=== PATIENT | female | born 2000 | race Caucasian/White ===

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

== ENCOUNTER 2021-02-14 04:13 | Inpatient (IN) ==
[2021-02-14] MEDS ORDERED: OXYTOCIN 30 UNITS/500 ML BAG IV PRN ×2 (05:21→09:18)
[2021-02-14] MEDS ORDERED: PENICILLIN G POTASSIUM 6 MU in DEXTROSE 5% 250 ML IV STA (05:21)
[2021-02-14] MEDS: LACTATED RINGER'S 1,000 ML IV PRN ×2 (05:40→15:56)
[2021-02-14 05:48] LABS: Hematocrit (blood only) 26.6 % (37-47); Mean Corpuscular Hemoglobin 22.3 pg (25-34); Mean Corpuscular Volume 74.1 fL (80-100); Mean Platelet Volume 10.4 fL (7.4-10.4); Platelet Count 207 K/uL (130-400); RDW Coefficient of Variation 16.2 % (11.5-14.5); RDW Standard Deviation 44.4 fL (36.4-46.3); Red Blood Count 3.59 M/uL (4.2-5.4); White Blood Count 11.33 K/uL (4.8-10.8)
--- NOTE | 2021-02-14 06:03 | History & Physical Report ---
Date of Service February 14, 2021 Assessment & Plan (1) Depression: Plan: Admit in labor epidural (2) Anxiety: (3) : Admission and Anticipated Discharge Date Admission Date: February 14, 2021 History of Present Illness Chief Complaint: term in labor Primary Care Provider: LÓPEZ PCP 20 F P1001 with no care present in active labor. Had ultrasound in [place] to establish EDC but no regular care established. 3 years ago with [facility] but no follow up since that time. Allergies Allergy/AdvReac Type Severity Reaction Status Date / Time No Known Allergies Allergy Mild Unverified 04/23/19 10:41 Home Medications Medication Instructions Recorded Confirmed Type methadone 10 mg/5 mL oral solution 55 mg PO DAILY 02/14/21 02/14/21 History vit no.95-ferrous 1 tab PO DAILY 02/14/21 02/14/21 History fumarate 28 mg-folic acid 800 mcg tablet () Patient History Medical History Nausea and vomiting during Normal vaginal delivery Doing well. Ambulate and diet progression as tolerated. complicated by maternal drug use, delivered, curr hospitaliz Surgical History History of tonsillectomy Family History Mother Cervical cancer Social History Smoking Status: Never smoker Second Hand Exposure: Yes; Hx Alcohol Use: No Hx Substance Use: Yes Last Used Substance: Unknown Last Used Substance Other:: Patient states she used medical marijuana a couple weeks ago Preferred Language: Cymro Communication Ability: Effective Medical Technologist Prn Required: No Beliefs That Will Affect Care: None marital status: Single Current Living Situation: Parent and Significant Other Other Information That Helps Us Care for You: No Feels Safe at Home: Yes Safety Concerns: Feels Safe At This Time Assistive Devices: None 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 neg Physical Exam Constitutional: WD/WN, vitals as above comfortable Eyes: PERRL, conjunctivae normal, anicteric sclerae Respiratory: normal respiratory effort, lungs clear to auscultation Cardiovascular: RRR, no murmur, no edema Neurologic: patellar DTR's 2+ bilat, sensation intact Psychiatric: A+Ox3, euthymic affect Genitourinary: OB Exam Abdomen: + fundal height and + vertex Manual OB Exam: + cervical dilation 7 cm, + cervical effacement 90% and + station 0 OB Exam Monitor Tracing: + external FHT monitor used, + external uterine monitor used, + category I and + normal FHT variability [facility] Vital Signs (Past 12 Hours) Vital Signs Temp Pulse Resp BP 02/14/21 05:04 77 154/87 H 02/14/21 04:53 69 183/77 H 02/14/21 04:44 94 H 158/91 H 02/14/21 04:34 36.5 C 84 18 175/94 H 02/14/21 04:31 84 175/94 H Monitoring External Monitor Cat 1
[2021-02-14 06:04] LABS: Mean Corpuscular Hgb Conc 30.1 g/dL (32-36)
[2021-02-14] MEDS ORDERED: ePHEDrine sulfate 50 MG/ML AMP ONE (06:22)
[2021-02-14] MEDS ORDERED: BUPIVACAINE 0.25% 30 ML VIAL ONE (06:22)
[2021-02-14] MEDS ORDERED: SODIUM CHLORIDE 0.9% INJ 10 ML VIAL ONE (06:22)
[2021-02-14] MEDS ORDERED: fentaNYL citrate 100 MCG/2 ML VIAL ONE (06:23)
[2021-02-14] MEDS ORDERED: fentaNYL 2MCG/ML ROPIVACAINE 1.25MG/ML 100 ML BAG EPI ONE (06:23)
--- NOTE | 2021-02-14 07:03 | Anesthesiology Consultation ---
Date of Service February 14, 2021 Assessment & Plan (1) Encounter for pre-operative examination: Chart Review Chart Review: Acceptable Risk for Labor Epidural History Height/Weight Height: 5 ft 3 in Weight: 77.111 kg Allergies Allergy/AdvReac Type Severity Reaction Status Date / Time No Known Allergies Allergy Mild Unverified 04/23/19 10:41 Medications Home Medications Medication Instructions Recorded Confirmed Last Taken methadone 10 mg/5 mL oral solution 55 mg PO DAILY 02/14/21 02/14/21 02/13/21 vit no.95-ferrous 1 tab PO DAILY 02/14/21 02/14/21 Unknown fumarate 28 mg-folic acid 800 mcg tablet () Active Medications Generic Name Dose Route Start Last Admin Trade Name Freq PRN Reason Stop Dose Admin Lactated Ringer's 1,000 mls @ 125 mls/hr 02/14/21 05:21 02/14/21 06:14 Lr IV 02/16/21 05:20 125 mls/hr .Q8H PRN Infusion L&D Protocol Protocol Past Medical History Medical History Nausea and vomiting during Normal vaginal delivery Doing well. Ambulate and diet progression as tolerated. complicated by maternal drug use, delivered, curr hospitaliz Past Family History Family History Mother Cervical cancer Past Surgical History Surgical History History of tonsillectomy Social History Smoking Status: Never smoker Hx Alcohol Use: No Hx Substance Use: Yes substance use type: marijuana and methamphetamine Last Used Substance: Unknown Last Used Substance Other:: Patient states she used medical marijuana a couple weeks ago Physical Exam Vital Signs Last Vital Signs Temp 36.5 C 02/14/21 04:34 Pulse 85 02/14/21 06:54 Resp 18 02/14/21 04:34 BP 154/87 H 02/14/21 05:04 Pulse Ox 100 02/14/21 06:54 Testing Laboratory Results 02/14/21 05:35
[2021-02-14] MEDS ORDERED: NALOXONE HCL 0.4 MG/1 ML VIAL/CARP IV PRN (07:31)
[2021-02-14] MEDS ORDERED: ePHEDrine sulfate 50 MG/ML AMP IV PRN (07:31)
[2021-02-14] MEDS ORDERED: NALOXONE HCL 1 MG in SODIUM CHLORIDE 0.9% 1000ML 1,000 ML IV PRN (07:31)
[2021-02-14] MEDS ORDERED: fentaNYL 2MCG/ML ROPIVACAINE 1.25MG/ML 100 ML BAG EPI PRN (07:31)
[2021-02-14] MEDS ORDERED: ONDANSETRON INJ 2 MG/ML 2 ML VIAL IV PRN (07:31)
[2021-02-14] MEDS ORDERED: SODIUM CHLORIDE 0.9% 250 ML IV PRN (07:42)
--- NOTE | 2021-02-14 07:58 | Obstetrical Progress Note ---
Date of Service February 14, 2021 Assessment & Plan Admission and Anticipated Discharge Date Admission Date: February 14, 2021 Subjective Patient is seen Admitted by Dr Landry this morning and recevied epidural for pain, comfortable now No care GBS unknown, received 1st dose of epidural Denies problems during this Denies medical problems/ surgeries Denies h/o STD's labs, Urine tox screen pending FHR reassuring Offered her pelvic exam but stated she is tired and wanted to sleep. Hb 8, T&C ordered for 2 units Continue to monitor Results & Data ([facility]) Vital Signs (Past 12 Hours) Vital Signs Temp Pulse Resp BP Pulse Ox 02/14/21 07:49 68 100 02/14/21 07:44 69 100 02/14/21 07:41 80 131/73 02/14/21 07:39 71 128/78 100 02/14/21 07:37 80 132/79 02/14/21 07:35 93 H 133/82 02/14/21 07:34 84 100 02/14/21 07:33 78 124/74 02/14/21 07:31 73 131/82 02/14/21 07:29 76 125/78 100 02/14/21 07:27 73 131/83 02/14/21 07:25 67 136/89 02/14/21 07:24 69 100 02/14/21 07:23 69 131/82 02/14/21 07:19 71 100 02/14/21 07:17 67 173/104 H 02/14/21 07:14 100 H 100 02/14/21 07:11 155/104 H 02/14/21 07:10 75 162/107 H 02/14/21 07:09 68 100 02/14/21 07:04 80 100 02/14/21 07:01 59 L 134/73 02/14/21 06:54 85 100 02/14/21 06:49 85 100 02/14/21 06:44 64 100 02/14/21 06:39 79 100 02/14/21 06:34 66 100 02/14/21 06:29 72 100 02/14/21 05:04 77 154/87 H 02/14/21 04:53 69 183/77 H 02/14/21 04:44 94 H 158/91 H 02/14/21 04:34 36.5 C 84 18 175/94 H 02/14/21 04:31 36.5 C 84 18 175/94 H
[2021-02-14] MEDS ORDERED: METHYLERGONOVINE MALEATE 0.2 MG/ML AMP ONE (08:00)
[2021-02-14] MEDS ORDERED: miSOPROStoL 200 MCG TAB ONE (08:04)
[2021-02-14] MEDS ORDERED: PENICILLIN G POTASSIUM 3 MU in DEXTROSE 5% 100 ML IV PRN (08:21)
[2021-02-14] MEDS ORDERED: AMMONIA, AROMATIC INHAL 1 EA AMP INH ONE (08:42)
[2021-02-14 08:43] LABS: Amphetamines+Metham, Urine Pos (Neg); Barbiturates, Urine Neg (Neg); Benzodiazepine, Urine Neg (Neg); Cocaine, Urine Neg (Neg); MDMA (Ecstacy), Urine Pos (Neg); Methadone, Urine Pos (Neg); Opiate, Urine Neg (Neg); Phencyclidine, Urine Neg (Neg)
[2021-02-14] MEDS: MAGNESIUM SULFATE / WTR 40 GM/1,000 ML BAG IV SCH ×2 (08:45→23:42)
[2021-02-14] MEDS: MAGNESIUM SULFATE 40GM / WTR 1,000 ML BAG IV ONE ×2 (08:45→14:27)
[2021-02-14 09:07] LABS: Hematocrit (blood only) 22.7 % (37-47); Hemoglobin 6.7 g/dL (12.0-16.0)
[2021-02-14 09:16] LABS: Hematocrit (blood only) 21.3 % (37-47); Hemoglobin 6.3 g/dL (12.0-16.0); Mean Corpuscular Hemoglobin 21.8 pg (25-34); Mean Corpuscular Hgb Conc 29.6 g/dL (32-36); Mean Corpuscular Volume 73.7 fL (80-100); Mean Platelet Volume 10.5 fL (7.4-10.4); Platelet Count 292 K/uL (130-400); RDW Coefficient of Variation 16.3 % (11.5-14.5); RDW Standard Deviation 44.1 fL (36.4-46.3); Red Blood Count 2.89 M/uL (4.2-5.4); White Blood Count 12.62 K/uL (4.8-10.8)
[2021-02-14] MEDS ORDERED: BENZOCAINE 20% AER SPR 82.5 GM CAN EXT PRN (09:18)
[2021-02-14] MEDS ORDERED: bisacodyL 10 MG SUPP PR PRN (09:18)
[2021-02-14] MEDS ORDERED: HYDROCORTISONE ACETATE 25 MG SUPP PR PRN (09:18)
[2021-02-14] MEDS ORDERED: MEASLES, MUMPS & RUBELLA VIRUS VIAL SQ ONE (09:18)
[2021-02-14] MEDS ORDERED: SUPERCREAM 0.870% 15 GM JAR EXT PRN (09:18)
[2021-02-14] MEDS ORDERED: DIPHTHERIA/TETANUS/PERTUSSIS 0.5 ML SYR/VIAL IM ONE (09:18)
[2021-02-14] MEDS ORDERED: miSOPROStoL 200 MCG TAB PR ONE (09:18)
[2021-02-14 09:20] LABS: Protein Creatinine Ratio Urine 0.2 (0-0.2); Total Protein Urine Random 43.7 mg/dl (0-11.9)
[2021-02-14] MEDS ORDERED: MAG SULFATE 6GM BOLUS FROM BAG IV ONE (09:22)
[2021-02-14 09:26] LABS: Rubella IgG Ab Immune (Immune)
[2021-02-14 09:27] LABS: Hepatitis B Surf Ag Rflx Conf Neg (Neg)
[2021-02-14] MEDS ORDERED: METHADONE HCL 5 MG TAB PO SCH (09:30)
[2021-02-14 09:32] LABS: Basophils # (auto) 0.01 K/uL (0-0.2); Basophils % (auto) 0.1 %; Eosinophils # (auto) 0.01 K/uL (0-0.5); Eosinophils % (auto) 0.1 %; Hypochromasia Present; Immature Granulocytes # (auto) 0.05 K/uL (0.00-0.02); Immature Granulocytes % (auto) 0.4 %; Lymphocytes # (auto) 1.47 K/uL (1.2-3.4); Lymphocytes % (auto) 11.6 %; Microcytosis Present; Monocytes # (auto) 0.37 K/uL (0.11-0.59); Monocytes % (auto) 2.9 %; Neutrophils # (auto) 10.71 K/uL (1.4-6.5); Neutrophils % (auto) 84.9 %
[2021-02-14 09:38] LABS: Albumin Level 2.1 gm/dl (3.4-5.0); BUN Creatinine Ratio 9.4 (10-20); Calcium 8.3 mg/dl (8.5-10.1); Creatinine Clr Calc Pharmacy 118.2 ml/min; Est GFR (African American) 134.2 ml/min; Est GFR (Non-African American) 115.8 ml/min; Potassium 3.6 mmol/L (3.5-5.1)
[2021-02-14 09:41] LABS: Albumin Globulin Ratio 0.7 (0.9-2); Bilirubin,Total 0.3 mg/dl (0.2-1); Globulin 3.2 gm/dl (2.5-4.0); Total Protein 5.3 gm/dl (6.4-8.2); Uric Acid 4.1 mg/dl (2.6-7.2)
--- NOTE | 2021-02-14 09:41 | Delivery Summary ---
Vaginal Delivery Summary Date of Service February 14, 2021 Vaginal Delivery Summary Patient was found to be fully dilated and desire to push. She pushed through 3 contractions and delivered the head without difficulty. The shoulders were delivered with minimal traction and baby was handed off to the mother that her mouth and nose were suctioned and cord was clamped x2 and cut at 1 minute delay. The baby was vigorously crying and moving at that point. The vagina and perineum were checked for lacerations. There was only small first-degree right labial laceration and rest of the vagina and perineum were intact. This was repaired with 3-0 Vicryl on SH needle and excellent hemostasis achieved. Then the patient started to have episodes of seizure like activity with brief change in consciousness and contracture of extremities. Then in a minute or so she gained her consciousness and responded to questions. She appeared to be tired as postictal. A second IV was started and nasal oxygen was given and magnesium bolus was started. Her vital signs were stable with normal blood pressure, Normal pulse and pulse ox. Patient was responsive but appeared to be pale and tired. Her preop hemoglobin was 8 and stat H&H came back with hemoglobin of 6.7. Blood was called to send the type and crossed packed red blood cells. Placenta was found to be in the vagina and delivered spontaneously as intact and complete. Uterus was explored and found to be empty, cleared of all clots and debris. Fundus was firm and EBL was 200 mL. She was given 800 mcg of Cytotec rectally. Bleeding was minimal and fundus was firm. Then we received urine drug screening results, positive for methadone, ecstasy, marijuana. The hospitalist and neurology were consulted. The baby was a viable male Apgars 8/9 and weight is pending, he was taking by pediatric team to nursery. At the end of the procedure the patient was stable and sponge needle instrument count was correct x2.
[2021-02-14 09:50] LABS: Fibrinogen 335 mg/dl (184-400); INR 0.9 (0.9-1.1); Partial Thromboplastin Ratio 0.8; Partial Thromboplastin Time 20.5 Seconds (21.0-31.0); Prothrombin Time 9.4 Seconds (9.0-12.0)
[2021-02-14 09:55] LABS: Hepatitis C IgG 13Yrs+Old_Rflx Neg (Neg)
[2021-02-14] MEDS ORDERED: PATIENT'S OWN CONTROLLED MED 3 SCH (10:15)
--- NOTE | 2021-02-14 10:27 | Obstetrical Progress Note ---
Date of Service February 14, 2021 Assessment & Plan Admission and Anticipated Discharge Date Admission Date: February 14, 2021 Subjective Patient is related. She feels well but cold and is asking for warm blankets. First unit of packed red blood cell is being transfused. Vital signs stable afebrile. Bleeding is minimal. Her blood pressures have been normal since delivery but they were found to be elevated when she was admitted. This was most likely an eclamptic seizure. Plan to Continue with IV magnesium for seizure prophylaxis and monitor closely. Lab Results 02/14/21 02/14/21 02/14/21 Range/Units 05:27 05:35 05:35 WBC 11.33 H (4.8-10.8) K/uL RBC 3.59 L (4.2-5.4) M/uL Hgb 8.0 L (12.0-16.0) g/dL Hct 26.6 L (37-47) % MCV 74.1 L (80-100) fL MCH 22.3 L (25-34) pg MCHC 30.1 L (32-36) g/dL RDW Std Deviation 44.4 (36.4-46.3) fL RDW Coeff of Davida 16.2 H (11.5-14.5) % Plt Count 207 (130-400) K/uL MPV 10.4 (7.4-10.4) fL Immature Gran % (Auto) % Neut % (Auto) % Lymph % (Auto) % [place] % (Auto) % Eos % (Auto) % Baso % (Auto) % Neut # (Auto) (1.4-6.5) K/uL Lymph # (Auto) (1.2-3.4) K/uL [place] # (Auto) (0.11-0.59) K/uL Eos # (Auto) (0-0.5) K/uL Baso # (Auto) (0-0.2) K/uL Immature Gran # (Auto) (0.00-0.02) K/uL Hypochromasia Microcytosis PT (9.0-12.0) Seconds INR (0.9-1.1) APTT (21.0-31.0) Seconds PTT Ratio Fibrinogen (184-400) mg/dl Sodium (136-145) mmol/L Potassium (3.5-5.1) mmol/L Chloride (98-107) mmol/L Carbon Dioxide (21-32) mmol/L Anion Gap (3-11) BUN (7-18) mg/dl Creatinine (0.6-1.2) mg/dl Est Cr Clr Drug Dosing ml/min Est GFR ( Amer) ml/min Est GFR (Non-Af Amer) ml/min BUN/Creatinine Ratio (10-20) Glucose (70-99) mg/dl Uric Acid (2.6-7.2) mg/dl Calcium (8.5-10.1) mg/dl Total Bilirubin (0.2-1) mg/dl AST (15-37) U/L ALT (12-78) Alkaline Phosphatase (45-117) U/L Lactate Dehydrogenase (84-246) U/L Total Protein (6.4-8.2) gm/dl Albumin (3.4-5.0) gm/dl Globulin (2.5-4.0) gm/dl Albumin/Globulin Ratio (0.9-2) Ur Random Creatinine mg/dl U Random Total Protein (0-11.9) mg/dl Protein/Creatinin Ratio (0-0.2) Urine Opiates Screen (Neg) Ur Methadone, Qual (Neg) Urine Barbiturates (Neg) Ur Phencyclidine (PCP) (Neg) U Amphetamin/Meth Scrn (Neg) MDMA (Ecstasy) Screen (Neg) U Benzodiazepines Scrn (Neg) Ur Cocaine Metabolite (Neg) U Marijuana (THC) Screen (Neg) Hep Bs Antigen (Neg) Hepatitis C Antibody (Neg) HIV 1&2 Ab/P24 Ag 4thGn (Neg) Rubella IgG Antibody (Immune) SARS-CoV-2, RNA, NAAT NEGATIVE (NEGATIVE) Blood Type O Positive Antibody Screen NEGATIVE Crossmatch See Detail 02/14/21 02/14/21 02/14/21 Range/Units 05:35 05:35 07:40 WBC (4.8-10.8) K/uL RBC (4.2-5.4) M/uL Hgb (12.0-16.0) g/dL Hct (37-47) % MCV (80-100) fL MCH (25-34) pg MCHC (32-36) g/dL RDW Std Deviation (36.4-46.3) fL RDW Coeff of Davida (11.5-14.5) % Plt Count (130-400) K/uL MPV (7.4-10.4) fL Immature Gran % (Auto) % Neut % (Auto) % Lymph % (Auto) % [place] % (Auto) % Eos % (Auto) % Baso % (Auto) % Neut # (Auto) (1.4-6.5) K/uL Lymph # (Auto) (1.2-3.4) K/uL [place] # (Auto) (0.11-0.59) K/uL Eos # (Auto) (0-0.5) K/uL Baso # (Auto) (0-0.2) K/uL Immature Gran # (Auto) (0.00-0.02) K/uL Hypochromasia Microcytosis PT (9.0-12.0) Seconds INR (0.9-1.1) APTT (21.0-31.0) Seconds PTT Ratio Fibrinogen (184-400) mg/dl Sodium (136-145) mmol/L Potassium (3.5-5.1) mmol/L Chloride (98-107) mmol/L Carbon Dioxide (21-32) mmol/L Anion Gap (3-11) BUN (7-18) mg/dl Creatinine (0.6-1.2) mg/dl Est Cr Clr Drug Dosing ml/min Est GFR ( Amer) ml/min Est GFR (Non-Af Amer) ml/min BUN/Creatinine Ratio (10-20) Glucose (70-99) mg/dl Uric Acid (2.6-7.2) mg/dl Calcium (8.5-10.1) mg/dl Total Bilirubin (0.2-1) mg/dl AST (15-37) U/L ALT (12-78) Alkaline Phosphatase (45-117) U/L Lactate Dehydrogenase (84-246) U/L Total Protein (6.4-8.2) gm/dl Albumin (3.4-5.0) gm/dl Globulin (2.5-4.0) gm/dl Albumin/Globulin Ratio (0.9-2) Ur Random Creatinine mg/dl U Random Total Protein (0-11.9) mg/dl Protein/Creatinin Ratio (0-0.2) Urine Opiates Screen Neg (Neg) Ur Methadone, Qual Pos H (Neg) Urine Barbiturates Neg (Neg) Ur Phencyclidine (PCP) Neg (Neg) U Amphetamin/Meth Scrn Pos H (Neg) MDMA (Ecstasy) Screen Pos H (Neg) U Benzodiazepines Scrn Neg (Neg) Ur Cocaine Metabolite Neg (Neg) U Marijuana (THC) Screen Pos H (Neg) Hep Bs Antigen Neg (Neg) Hepatitis C Antibody Neg (Neg) HIV 1&2 Ab/P24 Ag 4thGn Neg (Neg) Rubella IgG Antibody Immune (Immune) SARS-CoV-2, RNA, NAAT (NEGATIVE) Blood Type Antibody Screen Crossmatch 02/14/21 02/14/21 02/14/21 Range/Units 08:46 08:48 09:02 WBC (4.8-10.8) K/uL RBC (4.2-5.4) M/uL Hgb 6.7 L* (12.0-16.0) g/dL Hct 22.7 L (37-47) % MCV (80-100) fL MCH (25-34) pg MCHC (32-36) g/dL RDW Std Deviation (36.4-46.3) fL RDW Coeff of Davida (11.5-14.5) % Plt Count (130-400) K/uL MPV (7.4-10.4) fL Immature Gran % (Auto) % Neut % (Auto) % Lymph % (Auto) % [place] % (Auto) % Eos % (Auto) % Baso % (Auto) % Neut # (Auto) (1.4-6.5) K/uL Lymph # (Auto) (1.2-3.4) K/uL [place] # (Auto) (0.11-0.59) K/uL Eos # (Auto) (0-0.5) K/uL Baso # (Auto) (0-0.2) K/uL Immature Gran # (Auto) (0.00-0.02) K/uL Hypochromasia Microcytosis PT (9.0-12.0) Seconds INR (0.9-1.1) APTT (21.0-31.0) Seconds PTT Ratio Fibrinogen (184-400) mg/dl Sodium 135 L (136-145) mmol/L Potassium 3.6 (3.5-5.1) mmol/L Chloride 107 (98-107) mmol/L Carbon Dioxide 20 L (21-32) mmol/L Anion Gap 8.0 (3-11) BUN 7 (7-18) mg/dl Creatinine 0.74 (0.6-1.2) mg/dl Est Cr Clr Drug Dosing 118.2 ml/min Est GFR ( Amer) 134.2 ml/min Est GFR (Non-Af Amer) 115.8 ml/min BUN/Creatinine Ratio 9.4 L (10-20) Glucose 132 H (70-99) mg/dl Uric Acid 4.1 (2.6-7.2) mg/dl Calcium 8.3 L (8.5-10.1) mg/dl Total Bilirubin 0.3 (0.2-1) mg/dl AST 11 L (15-37) U/L ALT 10 L (12-78) Alkaline Phosphatase 184 H D (45-117) U/L Lactate Dehydrogenase (84-246) U/L Total Protein 5.3 L (6.4-8.2) gm/dl Albumin 2.1 L (3.4-5.0) gm/dl Globulin 3.2 (2.5-4.0) gm/dl Albumin/Globulin Ratio 0.7 L (0.9-2) Ur Random Creatinine 227.0 mg/dl U Random Total Protein 43.7 H (0-11.9) mg/dl Protein/Creatinin Ratio 0.2 (0-0.2) Urine Opiates Screen (Neg) Ur Methadone, Qual (Neg) Urine Barbiturates (Neg) Ur Phencyclidine (PCP) (Neg) U Amphetamin/Meth Scrn (Neg) MDMA (Ecstasy) Screen (Neg) U Benzodiazepines Scrn (Neg) Ur Cocaine Metabolite (Neg) U Marijuana (THC) Screen (Neg) Hep Bs Antigen (Neg) Hepatitis C Antibody (Neg) HIV 1&2 Ab/P24 Ag 4thGn (Neg) Rubella IgG Antibody (Immune) SARS-CoV-2, RNA, NAAT (NEGATIVE) Blood Type Antibody Screen Crossmatch 02/14/21 02/14/21 02/14/21 Range/Units 09:02 09:02 09:07 WBC 12.62 H (4.8-10.8) K/uL RBC 2.89 L (4.2-5.4) M/uL Hgb 6.3 L* (12.0-16.0) g/dL Hct 21.3 L (37-47) % MCV 73.7 L (80-100) fL MCH 21.8 L (25-34) pg MCHC 29.6 L (32-36) g/dL RDW Std Deviation 44.1 (36.4-46.3) fL RDW Coeff of Davida 16.3 H (11.5-14.5) % Plt Count 292 (130-400) K/uL MPV 10.5 H (7.4-10.4) fL Immature Gran % (Auto) 0.4 % Neut % (Auto) 84.9 % Lymph % (Auto) 11.6 % [place] % (Auto) 2.9 % Eos % (Auto) 0.1 % Baso % (Auto) 0.1 % Neut # (Auto) 10.71 H (1.4-6.5) K/uL Lymph # (Auto) 1.47 (1.2-3.4) K/uL [place] # (Auto) 0.37 (0.11-0.59) K/uL Eos # (Auto) 0.01 (0-0.5) K/uL Baso # (Auto) 0.01 (0-0.2) K/uL Immature Gran # (Auto) 0.05 H (0.00-0.02) K/uL Hypochromasia Present Microcytosis Present PT 9.4 (9.0-12.0) Seconds INR 0.9 (0.9-1.1) APTT 20.5 L (21.0-31.0) Seconds PTT Ratio 0.8 Fibrinogen 335 (184-400) mg/dl Sodium (136-145) mmol/L Potassium (3.5-5.1) mmol/L Chloride (98-107) mmol/L Carbon Dioxide (21-32) mmol/L Anion Gap (3-11) BUN (7-18) mg/dl Creatinine (0.6-1.2) mg/dl Est Cr Clr Drug Dosing ml/min Est GFR ( Amer) ml/min Est GFR (Non-Af Amer) ml/min BUN/Creatinine Ratio (10-20) Glucose (70-99) mg/dl Uric Acid (2.6-7.2) mg/dl Calcium (8.5-10.1) mg/dl Total Bilirubin (0.2-1) mg/dl AST (15-37) U/L ALT (12-78) Alkaline Phosphatase (45-117) U/L Lactate Dehydrogenase 150 (84-246) U/L Total Protein (6.4-8.2) gm/dl Albumin (3.4-5.0) gm/dl Globulin (2.5-4.0) gm/dl Albumin/Globulin Ratio (0.9-2) Ur Random Creatinine mg/dl U Random Total Protein (0-11.9) mg/dl Protein/Creatinin Ratio (0-0.2) Urine Opiates Screen (Neg) Ur Methadone, Qual (Neg) Urine Barbiturates (Neg) Ur Phencyclidine (PCP) (Neg) U Amphetamin/Meth Scrn (Neg) MDMA (Ecstasy) Screen (Neg) U Benzodiazepines Scrn (Neg) Ur Cocaine Metabolite (Neg) U Marijuana (THC) Screen (Neg) Hep Bs Antigen (Neg) Hepatitis C Antibody (Neg) HIV 1&2 Ab/P24 Ag 4thGn (Neg) Rubella IgG Antibody (Immune) SARS-CoV-2, RNA, NAAT (NEGATIVE) Blood Type Antibody Screen Crossmatch Results & Data ([facility]) Vital Signs (Past 12 Hours) Vital Signs Temp Pulse Resp BP Pulse Ox 02/14/21 10:20 82 92 02/14/21 10:19 74 100 02/14/21 10:14 90 100 02/14/21 10:13 84 92 02/14/21 10:11 77 119/76 02/14/21 10:09 86 96 02/14/21 10:07 77 90 02/14/21 10:04 75 100 02/14/21 09:59 76 100 02/14/21 09:57 83 92 02/14/21 09:56 87 128/83 02/14/21 09:55 36.6 C 76 16 128/83 96 02/14/21 09:54 98 H 85 L 02/14/21 09:51 92 H 90 02/14/21 09:49 80 100 02/14/21 09:44 87 100 02/14/21 09:43 80 137/94 02/14/21 09:41 75 137/91 02/14/21 09:39 89 100 02/14/21 09:35 36.7 C 70 16 129/83 100 02/14/21 09:34 68 100 02/14/21 09:29 69 100 02/14/21 09:26 68 129/83 02/14/21 09:24 69 100 02/14/21 09:19 69 100 02/14/21 09:14 76 100 02/14/21 09:11 86 125/74 02/14/21 09:09 71 100 02/14/21 09:04 76 100 02/14/21 09:03 80 112/60 02/14/21 08:59 91 H 100 02/14/21 08:57 93 H 84/46 L 02/14/21 08:54 106 H 100 02/14/21 08:53 101/56 L 02/14/21 08:49 85 100 02/14/21 08:47 71 106/55 L 02/14/21 08:46 71 99/54 L 02/14/21 08:44 82 99/54 L 96 02/14/21 08:43 76 94/50 L 02/14/21 08:42 67 92 02/14/21 08:39 107 H 75 L 02/14/21 08:37 102 H 144/85 H 02/14/21 08:36 99 H 90 02/14/21 08:34 86 99 02/14/21 08:29 72 100 02/14/21 08:24 71 98 02/14/21 08:19 92 H 100 02/14/21 08:14 73 100 02/14/21 08:11 95 H 150/97 H 02/14/21 08:09 84 100 02/14/21 08:04 61 100 02/14/21 07:59 70 100 02/14/21 07:58 72 142/94 H 02/14/21 07:54 72 100 02/14/21 07:49 68 100 02/14/21 07:44 69 100 02/14/21 07:41 80 131/73 02/14/21 07:39 71 128/78 100 02/14/21 07:37 80 132/79 02/14/21 07:35 93 H 133/82 02/14/21 07:34 84 100 02/14/21 07:33 78 124/74 02/14/21 07:31 73 131/82 02/14/21 07:29 76 125/78 100 02/14/21 07:27 73 131/83 02/14/21 07:25 67 136/89 02/14/21 07:24 69 100 02/14/21 07:23 69 131/82 02/14/21 07:19 71 100 02/14/21 07:17 67 173/104 H 02/14/21 07:14 100 H 100 02/14/21 07:11 155/104 H 02/14/21 07:10 75 162/107 H 02/14/21 07:09 68 100 02/14/21 07:04 80 100 02/14/21 07:01 59 L 134/73 02/14/21 06:54 85 100 02/14/21 06:49 85 100 02/14/21 06:44 64 100 02/14/21 06:39 79 100 02/14/21 06:34 66 100 02/14/21 06:29 72 100 02/14/21 05:04 77 154/87 H 02/14/21 04:53 69 183/77 H 02/14/21 04:44 94 H 158/91 H 02/14/21 04:34 36.5 C 84 18 175/94 H 02/14/21 04:31 36.5 C 84 18 175/94 H
--- NOTE | 2021-02-14 10:47 | Hospitalist Consultation ---
Date of Consultation February 14, 2021 Assessment & Plan (1) Seizure-like activity: Does not appear secondary to withdrawal at this time. Recommend neurology evaluation for potential seizure disorder although may have simply been secondary to eclampsia in the setting of elevated BP and proteinuria. No recurrent activity since delivery. (2) Opioid dependence: - Continue methadone as taking outpatient (3) : s/p spontaneous vaginal delivery today - care per primary service (4) Anxiety: (5) Depression: Pt seen and discussed with collaborating physician, Dr. Duque. Plan of care discussed and as outlined above. Oli Alcala PA-C Supervising Physician Co-Signing Physician Notes I have seen and examined the patient and have discussed the case with the provider above. I agree with the assessment and plan as stated. 20 yo heroin user who reports being clean for the past month. She has been using marijuana and has not received and care. Reports swelling and elevated blood pressure recently. Physical exam reveals a well-nourished well-developed female in no acute distress who is mentating clearly and has no neurologic deficits. She is not tremulous or anxious appearing and is holding her very comfortably. Heart and lung exam is normal. Overall this appears to be most consistent with eclampsia and not consistent with substance abuse withdrawal. However, defer to obstetrics and neurology for AED placement. No driving for 6 months. DO Neto History of Present Illness Reason for Consultation: Seizure Requesting Physician: Dr. Nyla Park Attending Physician: Cyrus Landry MD History of Present Illness This is a 20 y/o female with a PMH of heroin abuse, depression, and anxiety who was admitted overnight in labor, have a spontaneous vaginal delivery this morning, almost immediately after which she had one minute of seizure-like activity. She reportedly regained full consciousness within a minute or so but appeared like she may be post-ictal. The patient is on methadone and had a positive urine drug screen on admission so we have been consulted to comment on the possibility of this seizure activity being related to withdrawal. Pt denies any prior history of seizures or seizure disorder. She reports that she had a "rough" and did not receive any consistent care. She started methadone about a month ago due to a history of heroin abuse. Last use of heroin was a month ago per pt. Her methadone dose has been titrated up gradually from 30 mg daily to her current dose of 55 mg daily. She goes to the methadone clinic daily and takes her dose between 8 and 11 am. Last dose of methadone was yesterday. She also reports occasional marijuana use, which she states that she has a medical card to use it for anxiety and depression. Reports last use 2-3 weeks ago. Denies other illicit drugs, alcohol, and tobacco. Currently, she feels cold and fatigued with some mild cramping. She denies OLIVAREZ, CP, palpitations, SOB, diaphoresis, tremor or shakiness. She notes that she trouble with LE edema this during the third trimester, and reports that it was especially worsened over the past few days leading up to delivery. Allergies Allergy/AdvReac Type Severity Reaction Status Date / Time No Known Allergies Allergy Mild Unverified 04/23/19 10:41 Home Medications Medication Instructions Recorded Confirmed Type methadone 10 mg/5 mL oral solution 55 mg PO DAILY 02/14/21 02/14/21 History vit no.95-ferrous 1 tab PO DAILY 02/14/21 02/14/21 History fumarate 28 mg-folic acid 800 mcg tablet () Patient History Medical History (Updated 02/14/21 @ 11:46 by Shasta Alcala PA-C) Anxiety Depression Nausea and vomiting during Normal vaginal delivery Doing well. Ambulate and diet progression as tolerated. complicated by maternal drug use, delivered, curr hospitaliz Surgical History History of tonsillectomy Family History Mother Cervical cancer Social History Smoking Status: Never smoker Second Hand Exposure: Yes; Hx Alcohol Use: No Hx Substance Use: Yes Last Used Substance: Unknown Last Used Substance Other:: Patient states she used medical marijuana a couple weeks ago Preferred Language: Vietnamese Communication Ability: Effective Joint Yarner Required: No Beliefs That Will Affect Care: None marital status: Single Current Living Situation: Parent and Significant Other Other Information That Helps Us Care for You: No Feels Safe at Home: Yes Safety Concerns: Feels Safe At This Time Assistive Devices: None Review of Systems Review of Systems: All systems reviewed & are unremarkable except as noted in HPI & below Constitutional: + chills and + fatigue; no fever and no sweats Eyes: no diplopia Ear, Nose, Mouth, Throat: no nasal congestion, no nasal discharge and no sore throat Respiratory: no cough, no dyspnea and no wheezing Cardiovascular: + edema; no chest pain, no palpitations and no syncope Gastrointestinal: no nausea, no vomiting and no diarrhea/loose stools Genitourinary: no dysuria and no hematuria Musculoskeletal: no neck pain and no joint pain Integumentary: no yellowing of the skin Neurologic: as per Subjective / HPI Psychiatric: no depression and no anxiety Physical Exam Constitutional: no acute distress Eyes: PERRL, conjunctivae normal, anicteric sclerae ENMT: external ear and nose normal, oropharynx normal Neck: trachea midline Respiratory: no respiratory distress and no labored breathing Auscultation: lungs clear to auscultation bilaterally; no rales, no rhonchi and no wheezes Cardiovascular: Rate/Rhythm: regular rate and regular rhythm Heart Sounds: no gallop, no murmur and no cardiac rub Vessels: dorsalis pedis pulses present and radial pulses present Gastrointestinal (Abdomen): Inspection/Auscultation: normal bowel sounds; abdomen not distended Percussion/Palpation: abdomen soft Musculoskeletal: Head/Neck/Chest: normocephalic, head atraumatic and neck supple Skin: + pallor; no jaundice Neurologic: moves all extremities; no focal motor deficits and not confused Motor/Sensory: no tremor and no fasciculations Cranial Nerves: PERRL, normal accommodation, EOM intact bilaterally, normal facial strength, tongue midline, able to rotate head bilaterally, able to elevate shoulders bilaterally and symmetric palate elevation Psychiatric: A+Ox3, euthymic affect Results & Data Results & Data ([facility]) Vital Signs (Past 12 Hours) Vital Signs Temp Pulse Resp BP Pulse Ox 02/14/21 10:20 82 92 02/14/21 10:19 74 100 02/14/21 10:14 90 100 02/14/21 10:13 84 92 02/14/21 10:11 77 119/76 02/14/21 10:09 86 96 02/14/21 10:07 77 90 02/14/21 10:04 75 100 02/14/21 09:59 76 100 02/14/21 09:57 83 92 02/14/21 09:56 87 128/83 02/14/21 09:55 36.6 C 76 16 128/83 96 02/14/21 09:54 98 H 85 L 02/14/21 09:51 92 H 90 02/14/21 09:49 80 100 02/14/21 09:44 87 100 02/14/21 09:43 80 137/94 02/14/21 09:41 75 137/91 02/14/21 09:39 89 100 02/14/21 09:35 36.7 C 70 16 129/83 100 02/14/21 09:34 68 100 02/14/21 09:29 69 100 02/14/21 09:26 68 129/83 02/14/21 09:24 69 100 02/14/21 09:19 69 100 02/14/21 09:14 76 100 02/14/21 09:11 86 125/74 02/14/21 09:09 71 100 02/14/21 09:04 76 100 02/14/21 09:03 80 112/60 02/14/21 08:59 91 H 100 02/14/21 08:57 93 H 84/46 L 02/14/21 08:54 106 H 100 02/14/21 08:53 101/56 L 02/14/21 08:49 85 100 02/14/21 08:47 71 106/55 L 02/14/21 08:46 71 99/54 L 02/14/21 08:44 82 99/54 L 96 02/14/21 08:43 76 94/50 L 02/14/21 08:42 67 92 02/14/21 08:39 107 H 75 L 02/14/21 08:37 102 H 144/85 H 02/14/21 08:36 99 H 90 02/14/21 08:34 86 99 02/14/21 08:29 72 100 02/14/21 08:24 71 98 02/14/21 08:19 92 H 100 02/14/21 08:14 73 100 02/14/21 08:11 95 H 150/97 H 02/14/21 08:09 84 100 02/14/21 08:04 61 100 02/14/21 07:59 70 100 02/14/21 07:58 72 142/94 H 02/14/21 07:54 72 100 02/14/21 07:49 68 100 02/14/21 07:44 69 100 02/14/21 07:41 80 131/73 02/14/21 07:39 71 128/78 100 02/14/21 07:37 80 132/79 02/14/21 07:35 93 H 133/82 02/14/21 07:34 84 100 02/14/21 07:33 78 124/74 02/14/21 07:31 73 131/82 02/14/21 07:29 76 125/78 100 02/14/21 07:27 73 131/83 02/14/21 07:25 67 136/89 02/14/21 07:24 69 100 02/14/21 07:23 69 131/82 02/14/21 07:19 71 100 02/14/21 07:17 67 173/104 H 02/14/21 07:14 100 H 100 02/14/21 07:11 155/104 H 02/14/21 07:10 75 162/107 H 02/14/21 07:09 68 100 02/14/21 07:04 80 100 02/14/21 07:01 59 L 134/73 02/14/21 06:54 85 100 02/14/21 06:49 85 100 02/14/21 06:44 64 100 02/14/21 06:39 79 100 02/14/21 06:34 66 100 02/14/21 06:29 72 100 02/14/21 05:04 77 154/87 H 02/14/21 04:53 69 183/77 H 02/14/21 04:44 94 H 158/91 H 02/14/21 04:34 36.5 C 84 18 175/94 H 02/14/21 04:31 36.5 C 84 18 175/94 H Laboratory Results Laboratory Results - last 24 hr 02/14/21 02/14/21 02/14/21 05:27 05:35 05:35 WBC 11.33 H RBC 3.59 L Hgb 8.0 L Hct 26.6 L MCV 74.1 L MCH 22.3 L MCHC 30.1 L RDW Std Deviation 44.4 RDW Coeff of Davida 16.2 H Plt Count 207 MPV 10.4 Immature Gran % (Auto) Neut % (Auto) Lymph % (Auto) [place] % (Auto) Eos % (Auto) Baso % (Auto) Neut # (Auto) Lymph # (Auto) [place] # (Auto) Eos # (Auto) Baso # (Auto) Immature Gran # (Auto) Hypochromasia Microcytosis PT INR APTT PTT Ratio Fibrinogen Sodium Potassium Chloride Carbon Dioxide Anion Gap BUN Creatinine Est Cr Clr Drug Dosing Est GFR ( Amer) Est GFR (Non-Af Amer) BUN/Creatinine Ratio Glucose Uric Acid Calcium Total Bilirubin AST ALT Alkaline Phosphatase Lactate Dehydrogenase Total Protein Albumin Globulin Albumin/Globulin Ratio Ur Random Creatinine U Random Total Protein Protein/Creatinin Ratio Urine Opiates Screen Ur Methadone, Qual U Methadone Metabolites Ur Methadone Confirm Urine Barbiturates Ur Phencyclidine (PCP) U Amphetamines Confirm U Amphetamin/Meth Scrn U Methamphetamin Confrm Urine MDEA MDMA (Ecstasy) Screen MDMA Urine MDMA U Benzodiazepines Scrn Ur Cocaine Metabolite U Marijuana (THC) Screen U Marijuana THC Carboxy Drug Screen Comment RPR Hep Bs Antigen Hepatitis C Antibody HIV 1&2 Ab/P24 Ag 4thGn Rubella IgG Antibody SARS-CoV-2, RNA, NAAT NEGATIVE Blood Type O Positive Antibody Screen NEGATIVE Crossmatch See Detail 02/14/21 02/14/21 02/14/21 05:35 05:35 05:35 WBC RBC Hgb Hct MCV MCH MCHC RDW Std Deviation RDW Coeff of Davida Plt Count MPV Immature Gran % (Auto) Neut % (Auto) Lymph % (Auto) [place] % (Auto) Eos % (Auto) Baso % (Auto) Neut # (Auto) Lymph # (Auto) [place] # (Auto) Eos # (Auto) Baso # (Auto) Immature Gran # (Auto) Hypochromasia Microcytosis PT INR APTT PTT Ratio Fibrinogen Sodium Potassium Chloride Carbon Dioxide Anion Gap BUN Creatinine Est Cr Clr Drug Dosing Est GFR ( Amer) Est GFR (Non-Af Amer) BUN/Creatinine Ratio Glucose Uric Acid Calcium Total Bilirubin AST ALT Alkaline Phosphatase Lactate Dehydrogenase Total Protein Albumin Globulin Albumin/Globulin Ratio Ur Random Creatinine U Random Total Protein Protein/Creatinin Ratio Urine Opiates Screen Ur Methadone, Qual U Methadone Metabolites Ur Methadone Confirm Urine Barbiturates Ur Phencyclidine (PCP) U Amphetamines Confirm U Amphetamin/Meth Scrn U Methamphetamin Confrm Urine MDEA MDMA (Ecstasy) Screen MDMA Urine MDMA U Benzodiazepines Scrn Ur Cocaine Metabolite U Marijuana (THC) Screen U Marijuana THC Carboxy Drug Screen Comment RPR Pending Hep Bs Antigen Neg Hepatitis C Antibody Neg HIV 1&2 Ab/P24 Ag 4thGn Neg Rubella IgG Antibody Immune SARS-CoV-2, RNA, NAAT Blood Type Antibody Screen Crossmatch 02/14/21 02/14/21 02/14/21 07:40 07:40 08:46 WBC RBC Hgb Hct MCV MCH MCHC RDW Std Deviation RDW Coeff of Davida Plt Count MPV Immature Gran % (Auto) Neut % (Auto) Lymph % (Auto) [place] % (Auto) Eos % (Auto) Baso % (Auto) Neut # (Auto) Lymph # (Auto) [place] # (Auto) Eos # (Auto) Baso # (Auto) Immature Gran # (Auto) Hypochromasia Microcytosis PT INR APTT PTT Ratio Fibrinogen Sodium Potassium Chloride Carbon Dioxide Anion Gap BUN Creatinine Est Cr Clr Drug Dosing Est GFR ( Amer) Est GFR (Non-Af Amer) BUN/Creatinine Ratio Glucose Uric Acid Calcium Total Bilirubin AST ALT Alkaline Phosphatase Lactate Dehydrogenase Total Protein Albumin Globulin Albumin/Globulin Ratio Ur Random Creatinine 227.0 U Random Total Protein 43.7 H Protein/Creatinin Ratio 0.2 Urine Opiates Screen Neg Ur Methadone, Qual Pos H U Methadone Metabolites Pending Ur Methadone Confirm Pending Urine Barbiturates Neg Ur Phencyclidine (PCP) Neg U Amphetamines Confirm Pending U Amphetamin/Meth Scrn Pos H U Methamphetamin Confrm Pending Urine MDEA Pending MDMA (Ecstasy) Screen Pos H MDMA Pending Urine MDMA Pending U Benzodiazepines Scrn Neg Ur Cocaine Metabolite Neg U Marijuana (THC) Screen Pos H U Marijuana THC Carboxy Pending Drug Screen Comment Pending RPR Hep Bs Antigen Hepatitis C Antibody HIV 1&2 Ab/P24 Ag 4thGn Rubella IgG Antibody SARS-CoV-2, RNA, NAAT Blood Type Antibody Screen Crossmatch 02/14/21 02/14/21 02/14/21 08:48 09:02 09:02 WBC RBC Hgb 6.7 L* Hct 22.7 L MCV MCH MCHC RDW Std Deviation RDW Coeff of Davida Plt Count MPV Immature Gran % (Auto) Neut % (Auto) Lymph % (Auto) [place] % (Auto) Eos % (Auto) Baso % (Auto) Neut # (Auto) Lymph # (Auto) [place] # (Auto) Eos # (Auto) Baso # (Auto) Immature Gran # (Auto) Hypochromasia Microcytosis PT 9.4 INR 0.9 APTT 20.5 L PTT Ratio 0.8 Fibrinogen 335 Sodium 135 L Potassium 3.6 Chloride 107 Carbon Dioxide 20 L Anion Gap 8.0 BUN 7 Creatinine 0.74 Est Cr Clr Drug Dosing 118.2 Est GFR ( Amer) 134.2 Est GFR (Non-Af Amer) 115.8 BUN/Creatinine Ratio 9.4 L Glucose 132 H Uric Acid 4.1 Calcium 8.3 L Total Bilirubin 0.3 AST 11 L ALT 10 L Alkaline Phosphatase 184 H D Lactate Dehydrogenase Total Protein 5.3 L Albumin 2.1 L Globulin 3.2 Albumin/Globulin Ratio 0.7 L Ur Random Creatinine U Random Total Protein Protein/Creatinin Ratio Urine Opiates Screen Ur Methadone, Qual U Methadone Metabolites Ur Methadone Confirm Urine Barbiturates Ur Phencyclidine (PCP) U Amphetamines Confirm U Amphetamin/Meth Scrn U Methamphetamin Confrm Urine MDEA MDMA (Ecstasy) Screen MDMA Urine MDMA U Benzodiazepines Scrn Ur Cocaine Metabolite U Marijuana (THC) Screen U Marijuana THC Carboxy Drug Screen Comment RPR Hep Bs Antigen Hepatitis C Antibody HIV 1&2 Ab/P24 Ag 4thGn Rubella IgG Antibody SARS-CoV-2, RNA, NAAT Blood Type Antibody Screen Crossmatch 02/14/21 02/14/21 09:02 09:07 WBC 12.62 H RBC 2.89 L Hgb 6.3 L* Hct 21.3 L MCV 73.7 L MCH 21.8 L MCHC 29.6 L RDW Std Deviation 44.1 RDW Coeff of Davida 16.3 H Plt Count 292 MPV 10.5 H Immature Gran % (Auto) 0.4 Neut % (Auto) 84.9 Lymph % (Auto) 11.6 [place] % (Auto) 2.9 Eos % (Auto) 0.1 Baso % (Auto) 0.1 Neut # (Auto) 10.71 H Lymph # (Auto) 1.47 [place] # (Auto) 0.37 Eos # (Auto) 0.01 Baso # (Auto) 0.01 Immature Gran # (Auto) 0.05 H Hypochromasia Present Microcytosis Present PT INR APTT PTT Ratio Fibrinogen Sodium Potassium Chloride Carbon Dioxide Anion Gap BUN Creatinine Est Cr Clr Drug Dosing Est GFR ( Amer) Est GFR (Non-Af Amer) BUN/Creatinine Ratio Glucose Uric Acid Calcium Total Bilirubin AST ALT Alkaline Phosphatase Lactate Dehydrogenase 150 Total Protein Albumin Globulin Albumin/Globulin Ratio Ur Random Creatinine U Random Total Protein Protein/Creatinin Ratio Urine Opiates Screen Ur Methadone, Qual U Methadone Metabolites Ur Methadone Confirm Urine Barbiturates Ur Phencyclidine (PCP) U Amphetamines Confirm U Amphetamin/Meth Scrn U Methamphetamin Confrm Urine MDEA MDMA (Ecstasy) Screen MDMA Urine MDMA U Benzodiazepines Scrn Ur Cocaine Metabolite U Marijuana (THC) Screen U Marijuana THC Carboxy Drug Screen Comment RPR Hep Bs Antigen Hepatitis C Antibody HIV 1&2 Ab/P24 Ag 4thGn Rubella IgG Antibody SARS-CoV-2, RNA, NAAT Blood Type Antibody Screen Crossmatch Medications Administered Lactated Ringer's (Lr) 1,000 mls @ 125 mls/hr IV .Q8H PRN; Protocol PRN Reason: L&D Protocol Stop: 02/16/21 05:20 Last Infusion: 02/14/21 06:14 Dose: 125 mls/hr Documented by: [id number] Admin: 02/14/21 05:40 Dose: 999 mls/hr Documented by: [id number] Oxytocin (Pitocin) 30 units in 500 mls @ 333.333 mls/hr IV .Q1H30M PRN; Protocol PRN Reason: Bleeding Control Stop: 03/16/21 05:20 Last Titration: 02/14/21 09:28 Dose: 0 units/hr, 0 mls/hr Documented by: [id number] Admin: 02/14/21 08:52 Dose: 59.94 units/hr, 999 mls/hr Documented by: [id number] Cosigned by: [id number] Methadone HCl (Methadone Oral Soln 2 Mg/Ml) 55 mg PO QAM JANET Stop: 02/28/21 10:14 Last Admin: 02/14/21 11:24 Dose: 55 mg Documented by: [id number] Discontinued Medications Bupivacaine HCl (Bupivacaine 0.25% 30 Ml Vial) Confirm Administered Dose 30 ml .ROUTE .STK-MED ONE Stop: 02/14/21 06:23 Last Admin: 02/14/21 07:18 Dose: 30 ml Documented by: [id number] Ephedrine Sulfate (Ephedrine Sulfate 50 Mg/Ml Amp) Confirm Administered Dose 50 mg .ROUTE .STK-MED ONE Stop: 02/14/21 06:23 Last Admin: 02/14/21 09:20 Dose: Not Given Documented by: [id number] Fentanyl Citrate (Fentanyl Citrate 100 Mcg/2 Ml Vial) Confirm Administered Dose 100 mcg .ROUTE .STK-MED ONE Stop: 02/14/21 06:24 Last Increment: 02/14/21 07:28 Dose: 10 mcg Documented by: [id number] Penicillin G Potassium 6 mu/ (Dextrose) 262 mls @ 262 mls/hr IV NOW STA Stop: 02/14/21 06:20 Last Infusion: 02/14/21 09:22 Dose: 0 mls/hr Documented by: [id number] Admin: 02/14/21 06:14 Dose: 262 mls/hr Documented by: [id number] Magnesium Sulfate (Magnesium Sulfate 40gm / Wtr 1,000 Ml Bag) Confirm Administered Dose 40 gm IV .ST-MED ONE Stop: 02/14/21 08:44 Last Admin: 02/14/21 08:45 Dose: 6 gm Documented by: [id number] Cosigned by: [id number] Misoprostol (Misoprostol 200 Mcg Tab) Confirm Administered Dose 800 mcg .ROUTE .ST-MED ONE Stop: 02/14/21 08:05 Last Admin: 02/14/21 08:55 Dose: 800 mcg Documented by: [id number] Ropivacaine (Fentanyl 2mcg/Ml Ropivacaine 1.25mg/Ml 100 Ml Bag) Confirm Administered Dose 100 ml EPI .ST-MED ONE Stop: 02/14/21 06:24 Last Admin: 02/14/21 07:18 Dose: 100 ml Documented by: [id number] Cosigned by: [id number] Sodium Chloride (Sodium Chloride 0.9% Inj 10 Ml Vial) Confirm Administered Dose 10 ml .ROUTE .STK-MED ONE Stop: 02/14/21 06:23 Last Admin: 02/14/21 09:20 Dose: Not Given Documented by: [id number]
--- NOTE | 2021-02-14 10:51 | Communication Note ---
Date of Service: February 14, 2021 I entered the patient's room to provide assistance upon hearing a code call. At that time the patient was in lithotomy position for delivery, actively seizing and very pale; the infant was in the warmer being attended to by Dr. Major, and Dr. Redmond was holding the umbilical cord waiting for the placenta to deliver. The seizure spontaneously ended as I stepped to the bedside and the patient began displaying typical postictal behaviors, resumed breathing, and her pink color began to return. At the request of Dr. Redmond, I assisted in care for several minutes as pulse oximetry was established, a second IV site was established, BP cuff was cycled, and a magnesium bolus of 6g IV over 20min was given for presumed eclamptic seizure. Stat labs were sent, these being placed in the computer one at a time by CONNOR Acharya as I gave them to her verbally and Dr. Redmond confirmed she was in agreement with the orders. Nurses gave the history that this patient was positive for methadone use and her dose was 55mg per day, and that she uses medical marijuana as well. A tox screen resulted during these events and viewed on the computer at bedside showed ecstasy and methamphetamines in her system as well. History given by Dr. Redmond noted poor compliance with care, and the patient denying medical problems upon admission. Nurses reported at bedside that the patient's blood pressure had been elevated early in her labor course. After the patient was more awake, she confirmed that she has no known seizure disorder, and that she had her last dose of methadone yesterday, and is not due for today's dose until 11am so there would be no withdrawal expected at this time. When I left the patient with Dr. Redmond remaining at the bedside, at 09:05, she was awake and responding well to commands, vital signs stable with good oxygenation, fundus firm, lochia minimal, she had two functional IV sites, labs pending, and magnesium bolus running along with pitocin and plain LR. Dr. Redmond as this patient's attending will continue with management for eclampsia, anemia, and follow up on the events described above.
[2021-02-14] MEDS: METHADONE ORAL SOLN 2 MG/ML PO SCH (11:24)
--- NOTE | 2021-02-14 12:59 | Neurology Consultation ---
Date of Consultation February 14, 2021 Assessment & Plan (1) Seizure-like activity: 1. this may have been a vasovagal response to deliver 2. MRI brain with and without - ordered- r/o seizure focus or stroke 3. EEG - no seizure focus or spikes seen 4. MRV ordered r/o venous thrombosis 5. positive for marijuana denies other drugs 6. primary team for blood pressure control and medical management PCP and OB and peds after discharge, neurology prn Supervising Physician Co-Signing Physician Notes I have seen and discussed above patient with Dr Alis Alamo, neurology. Patient seen and examined history reviewed. The patient delivered a baby full- term today. She had a epidural anesthesia placed and was in significant pain prior to that. The epidural was placed about an hour prior to delivery. She delivered a baby in about 3 minutes later her significant other indicated that she became pale and briefly lost consciousness stiffening up for about a minute after which time she was tired but not confused. The patient indicates that she felt lightheaded and her vision dimming her hearing muffled. She denies any incontinence or tongue biting. She has no headache no new weakness or numbness. Prior to the delivery her blood pressure was in the 150s over 80s or higher. Vitals after the delivery were in the systolic 80s and 90s. Blood pressure at this point has remained hypertensive last blood pressure being 147/99. Patient has required a blood transfusion post delivery. Her was not complicated although she did not receive much in terms of care to know what her blood pressure was prior to delivery. The patient had a syncopal episode that if she eats prior to in the last 1 year. Her significant other indicated that she felt lightheaded and she briefly lost consciousness falling to the ground without seizure activity she tried standing up to additional times and briefly lost consciousness. No seizure activity or confusion were noted with those episodes She has no history of seizure in use there is no family history of seizures she was born full-term normal milestones no history of significant head injury. No history of staring spells olfactory aura. The patient denies any drug or alcohol withdrawal. Her tox screen was positive for methadone marijuana MDMA. She denies any alcohol withdrawal benzodiazepine withdrawal. She went off Paxil about 5 weeks ago. Her labs were notable for normal serum sodium glucose calcium. Platelet count was normal. The urinalysis showed a mildly elevated total protein On exam the patient is awake and alert her speech and language is normal and her affect is appropriate there are no carotid bruits no heart murmurs heart is regular rate and rhythm. Neck is supple pupils are equal no papilledema is noted there are normal gibbs motility facial symmetry symmetric strength in the upper and lowers reflexes are mildly diffusely brisk but there is no clonus and toes are downgoing [id number] and [id number] are normal gait was not tested By description this patient had a brief episode of stiffening up with pallor after which point she was found to be relatively hypotensive and anemic. I suspect this was a García-Tirado attack or brief seizure activity associated with hypotension Seizure is certainly within the differential although the EEG reassuringly was normal. The lack of a postictal period also argues against seizure as does the pallor. The patient needs an MRI and an MRV to rule out sagittal sinus thrombosis or other intracranial etiologies of seizure Defer to JAZZ MUSICIAN as to whether or not this presentation is consistent with eclampsia. If the patient has another seizure I would recommend loading her with Keppra 1000 mg IV followed by Keppra [address] Parish will be taking over the service tomorrow and will see the patient in follow-up Alis Alamo MD History of Present Illness Reason for Consultation: seizure, on methadone and uds positive Requesting Physician: Cyrus Landry MD Attending Physician: Cyrus Landry MD History of Present Illness Keisha is a 20 year old female that was found to be fully dilated and desire to push. She pushed through 3 contractions and delivered the head without difficulty. The shoulders were delivered with minimal traction and baby was handed off to the mother that her mouth and nose were suctioned and cord was clamped x2 and cut at 1 minute delay. The baby was vigorously crying and moving at that point. The vagina and perineum were checked for lacerations. There was only small first-degree right labial laceration and rest of the vagina and perineum were intact. This was repaired with 3-0 Vicryl on SH needle and excellent hemostasis achieved. Then the patient started to have episodes of seizure like activity with brief change in consciousness and contracture of extremities. Then in a minute or so she gained her consciousness and responded to questions. She appeared to be tir ed as postictal. A second IV was started and nasal oxygen was given and magnesium bolus was started.Her vital signs were stable with normal blood pressure, Normal pulse and pulse ox. She is currently tired but feeling good. Her is in the room. She denies any illegal drug use she states methadone only. she remembers being dizzy and feeling like she was going to pass out. denies any history of seizures, or head neck trauma. denies CP, SOB, abdominal pain, N, V, vision changes. Allergies Allergy/AdvReac Type Severity Reaction Status Date / Time No Known Allergies Allergy Mild Unverified 04/23/19 10:41 Home Medications Medication Instructions Recorded Confirmed Type methadone 10 mg/5 mL oral solution 55 mg PO DAILY 02/14/21 02/14/21 History vit no.95-ferrous 1 tab PO DAILY 02/14/21 02/14/21 History fumarate 28 mg-folic acid 800 mcg tablet () Patient History Medical History (Updated 02/14/21 @ 11:46 by Shasta Alcala PA-C) Anxiety Depression Nausea and vomiting during Normal vaginal delivery Doing well. Ambulate and diet progression as tolerated. complicated by maternal drug use, delivered, curr hospitaliz Surgical History History of tonsillectomy Family History Mother Cervical cancer Social History Smoking Status: Never smoker Second Hand Exposure: Yes; Hx Alcohol Use: No Hx Substance Use: Yes Last Used Substance: Unknown Last Used Substance Other:: Patient states she used medical marijuana a couple weeks ago Preferred Language: Faroese Communication Ability: Effective Boiler Room Operator Required: No Beliefs That Will Affect Care: None marital status: Single Current Living Situation: Parent and Significant Other Other Information That Helps Us Care for You: No Feels Safe at Home: Yes Safety Concerns: Feels Safe At This Time Assistive Devices: None Review of Systems Review of Systems: All systems reviewed & are unremarkable except as noted in HPI & below Physical Exam Physical Exam: Physical Exam: Constitutional: appearance over nourished, healthy Ears, Nose, Mouth and Throat: mucous membranes moist, no injection and skin normal, eyes normal Cardiovascular: normal S-1 and S-2 and regular rate and rhythm Respiratory: clear to auscultation (CTA) and no rales, rhonchi or wheeze Musculoskeletal: no peripheral edema and good distal pulses Skin: no stigmata of neurocutaneous disease noted and normal and intact Eyes: extraocular muscles intact (EOMI) and pupils equal, round and reactive to light (PERRL) NEUROLOGIC EXAMINATION: Mental status: Alert and interactive Oriented to full date and location Oriented to person Speech fluent with no evidence of aphasia Cranial Nerves smile eye brow raise symmetric Sensory: no sensory deficits light cool touch Coordination: finger to nose no bipass Gait/Stance: Posture sitting up in bed Motor: Negative for pronator drift of out stretched arms with eyes closed. Strength: hand membership solicitor biceps triceps 5/5, hip flex 5/5 Results & Data ([facility]) Vital Signs (Past 12 Hours) Vital Signs Temp Pulse Resp BP Pulse Ox 02/14/21 12:54 89 100 02/14/21 12:49 88 100 02/14/21 12:48 93 H 122/87 02/14/21 12:44 90 99 02/14/21 12:39 94 H 98 02/14/21 12:35 36.6 C 105 H 16 135/89 100 02/14/21 12:34 100 H 96 02/14/21 12:33 96 H 94 02/14/21 12:29 95 H 98 02/14/21 12:26 105 H 135/89 02/14/21 12:24 99 H 100 02/14/21 12:19 94 H 100 02/14/21 12:14 97 H 100 02/14/21 12:11 96 H 128/78 02/14/21 12:09 96 H 100 02/14/21 12:04 96 H 100 02/14/21 12:00 16 02/14/21 11:59 96 H 100 02/14/21 11:56 103 H 140/82 02/14/21 11:55 103 H 16 140/82 100 02/14/21 11:54 98 H 100 02/14/21 11:49 101 H 100 02/14/21 11:45 16 02/14/21 11:44 87 100 02/14/21 11:41 36.6 C 92 H 18 141/95 H 100 02/14/21 11:40 36.7 C 110 H 16 141/95 H 100 02/14/21 11:39 89 100 02/14/21 11:36 83 87 L 02/14/21 11:34 80 100 02/14/21 11:30 16 02/14/21 11:29 86 100 02/14/21 11:27 81 144/90 H 02/14/21 11:26 84 91 02/14/21 11:24 92 H 99 02/14/21 11:23 36.6 C 85 16 144/90 H 99 02/14/21 11:19 81 99 02/14/21 11:15 16 02/14/21 11:14 93 H 100 02/14/21 11:11 100 H 128/86 02/14/21 11:09 97 H 98 02/14/21 11:08 36.6 C 92 H 16 128/86 99 02/14/21 11:04 91 H 98 02/14/21 11:00 16 02/14/21 10:59 80 100 02/14/21 10:57 36.6 C 78 16 139/87 100 02/14/21 10:56 84 139/87 02/14/21 10:54 36.6 C 73 16 116/56 L 100 02/14/21 10:49 79 100 02/14/21 10:45 18 02/14/21 10:44 98 H 100 02/14/21 10:42 109 H 116/56 L 02/14/21 10:39 89 98 02/14/21 10:34 84 100 02/14/21 10:30 16 02/14/21 10:29 84 96 02/14/21 10:26 75 134/89 02/14/21 10:24 72 100 02/14/21 10:20 82 92 02/14/21 10:19 74 100 02/14/21 10:15 16 02/14/21 10:14 90 100 02/14/21 10:13 84 92 02/14/21 10:11 77 119/76 02/14/21 10:09 86 96 02/14/21 10:07 77 90 02/14/21 10:04 75 100 02/14/21 10:00 16 02/14/21 09:59 76 100 02/14/21 09:57 83 92 02/14/21 09:56 87 128/83 02/14/21 09:55 36.6 C 76 16 128/83 96 02/14/21 09:54 98 H 85 L 02/14/21 09:51 92 H 90 02/14/21 09:49 80 100 02/14/21 09:45 16 02/14/21 09:44 87 100 02/14/21 09:43 80 137/94 02/14/21 09:41 75 137/91 02/14/21 09:39 89 100 02/14/21 09:35 36.7 C 70 16 129/83 100 02/14/21 09:34 68 100 02/14/21 09:30 16 02/14/21 09:29 69 100 02/14/21 09:26 68 129/83 02/14/21 09:24 69 100 02/14/21 09:19 69 100 02/14/21 09:15 18 02/14/21 09:14 76 100 02/14/21 09:11 86 125/74 02/14/21 09:09 71 100 02/14/21 09:04 76 100 02/14/21 09:03 80 112/60 02/14/21 09:00 18 02/14/21 08:59 91 H 100 02/14/21 08:57 93 H 84/46 L 02/14/21 08:54 106 H 100 02/14/21 08:53 101/56 L 02/14/21 08:49 85 100 02/14/21 08:47 71 106/55 L 02/14/21 08:46 71 99/54 L 02/14/21 08:45 16 02/14/21 08:44 82 99/54 L 96 02/14/21 08:43 76 94/50 L 02/14/21 08:42 67 92 02/14/21 08:39 107 H 75 L 02/14/21 08:37 102 H 144/85 H 02/14/21 08:36 99 H 90 02/14/21 08:34 86 99 02/14/21 08:29 72 100 02/14/21 08:24 71 98 02/14/21 08:19 92 H 100 02/14/21 08:14 73 100 02/14/21 08:11 95 H 150/97 H 02/14/21 08:09 84 100 02/14/21 08:04 61 100 02/14/21 07:59 70 100 02/14/21 07:58 72 142/94 H 02/14/21 07:54 72 100 02/14/21 07:49 68 100 02/14/21 07:44 69 100 02/14/21 07:41 80 131/73 02/14/21 07:39 71 128/78 100 02/14/21 07:37 80 132/79 02/14/21 07:35 93 H 133/82 02/14/21 07:34 84 100 02/14/21 07:33 78 124/74 02/14/21 07:31 73 131/82 02/14/21 07:29 76 125/78 100 02/14/21 07:27 73 131/83 02/14/21 07:25 67 136/89 02/14/21 07:24 69 100 02/14/21 07:23 69 131/82 02/14/21 07:19 71 100 02/14/21 07:17 67 173/104 H 02/14/21 07:14 100 H 100 02/14/21 07:11 155/104 H 02/14/21 07:10 75 162/107 H 02/14/21 07:09 68 100 02/14/21 07:04 80 100 02/14/21 07:01 59 L 134/73 02/14/21 06:54 85 100 02/14/21 06:49 85 100 02/14/21 06:44 64 100 02/14/21 06:39 79 100 02/14/21 06:34 66 100 02/14/21 06:29 72 100 02/14/21 05:04 77 154/87 H 02/14/21 04:53 69 183/77 H 02/14/21 04:44 94 H 158/91 H 02/14/21 04:34 36.5 C 84 18 175/94 H 02/14/21 04:31 36.5 C 84 18 175/94 H Laboratory Results Abnormal lab results 02/14/21 02/14/21 02/14/21 Range/Units 05:35 05:35 07:40 WBC 11.33 H (4.8-10.8) K/uL RBC 3.59 L (4.2-5.4) M/uL Hgb 8.0 L (12.0-16.0) g/dL Hct 26.6 L (37-47) % MCV 74.1 L (80-100) fL MCH 22.3 L (25-34) pg MCHC 30.1 L (32-36) g/dL RDW Coeff of Davida 16.2 H (11.5-14.5) % MPV (7.4-10.4) fL Neut # (Auto) (1.4-6.5) K/uL Immature Gran # (Auto) (0.00-0.02) K/uL APTT (21.0-31.0) Seconds Sodium (136-145) mmol/L Carbon Dioxide (21-32) mmol/L BUN/Creatinine Ratio (10-20) Glucose (70-99) mg/dl Calcium (8.5-10.1) mg/dl AST (15-37) U/L ALT (12-78) Alkaline Phosphatase (45-117) U/L Total Protein (6.4-8.2) gm/dl Albumin (3.4-5.0) gm/dl Albumin/Globulin Ratio (0.9-2) U Random Total Protein (0-11.9) mg/dl Ur Methadone, Qual Pos H (Neg) U Amphetamin/Meth Scrn Pos H (Neg) MDMA (Ecstasy) Screen Pos H (Neg) U Marijuana (THC) Screen Pos H (Neg) Crossmatch See Detail 02/14/21 02/14/21 02/14/21 Range/Units 08:46 08:48 09:02 WBC (4.8-10.8) K/uL RBC (4.2-5.4) M/uL Hgb 6.7 L* (12.0-16.0) g/dL Hct 22.7 L (37-47) % MCV (80-100) fL MCH (25-34) pg MCHC (32-36) g/dL RDW Coeff of Davida (11.5-14.5) % MPV (7.4-10.4) fL Neut # (Auto) (1.4-6.5) K/uL Immature Gran # (Auto) (0.00-0.02) K/uL APTT (21.0-31.0) Seconds Sodium 135 L (136-145) mmol/L Carbon Dioxide 20 L (21-32) mmol/L BUN/Creatinine Ratio 9.4 L (10-20) Glucose 132 H (70-99) mg/dl Calcium 8.3 L (8.5-10.1) mg/dl AST 11 L (15-37) U/L ALT 10 L (12-78) Alkaline Phosphatase 184 H D (45-117) U/L Total Protein 5.3 L (6.4-8.2) gm/dl Albumin 2.1 L (3.4-5.0) gm/dl Albumin/Globulin Ratio 0.7 L (0.9-2) U Random Total Protein 43.7 H (0-11.9) mg/dl Ur Methadone, Qual (Neg) U Amphetamin/Meth Scrn (Neg) MDMA (Ecstasy) Screen (Neg) U Marijuana (THC) Screen (Neg) Crossmatch 02/14/21 02/14/21 Range/Units 09:02 09:07 WBC 12.62 H (4.8-10.8) K/uL RBC 2.89 L (4.2-5.4) M/uL Hgb 6.3 L* (12.0-16.0) g/dL Hct 21.3 L (37-47) % MCV 73.7 L (80-100) fL MCH 21.8 L (25-34) pg MCHC 29.6 L (32-36) g/dL RDW Coeff of Davida 16.3 H (11.5-14.5) % MPV 10.5 H (7.4-10.4) fL Neut # (Auto) 10.71 H (1.4-6.5) K/uL Immature Gran # (Auto) 0.05 H (0.00-0.02) K/uL APTT 20.5 L (21.0-31.0) Seconds Sodium (136-145) mmol/L Carbon Dioxide (21-32) mmol/L BUN/Creatinine Ratio (10-20) Glucose (70-99) mg/dl Calcium (8.5-10.1) mg/dl AST (15-37) U/L ALT (12-78) Alkaline Phosphatase (45-117) U/L Total Protein (6.4-8.2) gm/dl Albumin (3.4-5.0) gm/dl Albumin/Globulin Ratio (0.9-2) U Random Total Protein (0-11.9) mg/dl Ur Methadone, Qual (Neg) U Amphetamin/Meth Scrn (Neg) MDMA (Ecstasy) Screen (Neg) U Marijuana (THC) Screen (Neg) Crossmatch Diagnostic Findings normal EEG during wakefulness revealing no evidence for focal or generalized encephalopathy and no evidence for potentially epileptogenic activity
--- NOTE | 2021-02-14 14:36 | Anesthesia Procedure Note ---
Date of Service February 14, 2021 Anesthesia Post Epidural Note Vital Signs Vital Signs: Temp Pulse Resp BP Pulse Ox 36.7 C 90 18 162/88 H 99 02/14/21 13:55 02/14/21 14:34 02/14/21 14:30 02/14/21 14:33 02/14/21 14:34 Notes Mental Status: alert / awake / arousable and participated in evaluation Nausea / Vomiting: adequately controlled Pain: adequately controlled Airway Patency, RR, SpO2: stable & adequate BP & HR: stable & adequate Hydration State: stable & adequate Neuraxial Anesthesia: was administered and sensory block is resolving Anesthetic Complications: no major complications apparent Epidural: Removed without complications and With tip intact
--- NOTE | 2021-02-14 14:55 | Electroencephalogram ---
EEG Procedure Note Date of Service February 14, 2021 Start / End Times Start Time: 200 End Time: 220 Referring Physician Alis Hartmann PAC History syncope versus seizure Home Medication List Medication Instructions Recorded Confirmed Type methadone 10 mg/5 mL oral solution 55 mg PO DAILY 02/14/21 02/14/21 History vit no.95-ferrous 1 tab PO DAILY 02/14/21 02/14/21 History fumarate 28 mg-folic acid 800 mcg tablet () Inpatient Medication List Lactated Ringer's (Lr) 1,000 mls @ 125 mls/hr IV .Q8H PRN; Protocol PRN Reason: L&D Protocol Stop: 02/16/21 05:20 Last Infusion: 02/14/21 14:39 Dose: 75 mls/hr Documented by: [id number] Infusion: 02/14/21 10:00 Dose: 75 mls/hr Documented by: [id number] Infusion: 02/14/21 06:14 Dose: 125 mls/hr Documented by: [id number] Admin: 02/14/21 05:40 Dose: 999 mls/hr Documented by: [id number] Oxytocin (Pitocin) 30 units in 500 mls @ 333.333 mls/hr IV .Q1H30M PRN; Protocol PRN Reason: Bleeding Control Stop: 03/16/21 05:20 Last Titration: 02/14/21 09:28 Dose: 0 units/hr, 0 mls/hr Documented by: [id number] Admin: 02/14/21 08:52 Dose: 59.94 units/hr, 999 mls/hr Documented by: [id number] Cosigned by: [id number] Magnesium Sulfate (Magnesium Sulfate / Wtr) 40 gm in 1,000 mls @ 50 mls/hr IV .Q20H [facility] Stop: 03/16/21 09:29 Last Infusion: 02/14/21 14:39 Dose: 50 mls/hr Documented by: [id number] Cosigned by: [id number] Infusion: 02/14/21 09:15 Dose: 50 mls/hr Documented by: [id number] Cosigned by: [id number] Admin: 02/14/21 08:45 Dose: 300 mls/hr Documented by: [id number] Cosigned by: [id number] Methadone HCl (Methadone Oral Soln 2 Mg/Ml) 55 mg PO QAM [facility] Stop: 02/28/21 10:14 Last Admin: 02/14/21 11:24 Dose: 55 mg Documented by: [id number] Discontinued Medications Ammonia (Aromatic Spirit) (Ammonia, Aromatic Inhal 1 Ea Amp) Confirm Administered Dose 1 ea INH .STK-MED ONE Stop: 02/14/21 08:43 Last Admin: 02/14/21 14:26 Dose: Not Given Documented by: [id number] Bupivacaine HCl (Bupivacaine 0.25% 30 Ml Vial) Confirm Administered Dose 30 ml .ROUTE .STK-MED ONE Stop: 02/14/21 06:23 Last Admin: 02/14/21 07:18 Dose: 30 ml Documented by: [id number] Ephedrine Sulfate (Ephedrine Sulfate 50 Mg/Ml Amp) Confirm Administered Dose 50 mg .ROUTE .STK-MED ONE Stop: 02/14/21 06:23 Last Admin: 02/14/21 09:20 Dose: Not Given Documented by: [id number] Fentanyl Citrate (Fentanyl Citrate 100 Mcg/2 Ml Vial) Confirm Administered Dose 100 mcg .ROUTE .STK-MED ONE Stop: 02/14/21 06:24 Last Increment: 02/14/21 07:28 Dose: 10 mcg Documented by: [id number] Penicillin G Potassium 6 mu/ (Dextrose) 262 mls @ 262 mls/hr IV NOW STA Stop: 02/14/21 06:20 Last Infusion: 02/14/21 09:22 Dose: 0 mls/hr Documented by: [id number] Admin: 02/14/21 06:14 Dose: 262 mls/hr Documented by: [id number] Magnesium Sulfate (Magnesium Sulfate 40gm / Wtr 1,000 Ml Bag) Confirm Administered Dose 40 gm IV .STK-MED ONE Stop: 02/14/21 08:44 Last Admin: 02/14/21 14:27 Dose: Not Given Documented by: [id number] Magnesium Sulfate (Mag Sulfate 6gm Bolus From Bag) 6 gm IV ONE ONE Stop: 02/14/21 09:23 Last Admin: 02/14/21 14:26 Dose: Not Given Documented by: [id number] Methylergonovine Maleate (Methylergonovine Maleate 0.2 Mg/Ml Amp) Confirm Administered Dose 0.2 mg .ROUTE .STK-MED ONE Stop: 02/14/21 08:01 Last Admin: 02/14/21 14:26 Dose: Not Given Documented by: [id number] Misoprostol (Misoprostol 200 Mcg Tab) Confirm Administered Dose 800 mcg .ROUTE .STK-MED ONE Stop: 02/14/21 08:05 Last Admin: 02/14/21 08:55 Dose: 800 mcg Documented by: [id number] Misoprostol (Misoprostol 200 Mcg Tab) 800 mcg WI ONCE ONE Stop: 02/14/21 09:19 Last Admin: 02/14/21 14:26 Dose: Not Given Documented by: [id number] Ropivacaine (Fentanyl 2mcg/Ml Ropivacaine 1.25mg/Ml 100 Ml Bag) Confirm Administered Dose 100 ml EPI .STK-MED ONE Stop: 02/14/21 06:24 Last Admin: 02/14/21 07:18 Dose: 100 ml Documented by: [id number] Cosigned by: [id number] Sodium Chloride (Sodium Chloride 0.9% Inj 10 Ml Vial) Confirm Administered Dose 10 ml .ROUTE .STK-MED ONE Stop: 02/14/21 06:23 Last Admin: 02/14/21 09:20 Dose: Not Given Documented by: [id number] Description This is a 21 electrode EEG with a single channel dedicated to limited EKG. The electrodes were placed in accordance with the International 10-20 system. this EEG is done as a bedside recording and is of good technical quality with rare muscle and movement artifacts. Photic stimulation is performed. Drowsiness and light sleep were not recorded. During wakefulness there is evidence for normal background rhythm in the alpha range of up to 10 hertz a maximum frequency and 30 microvolts in maximal amplitude. This is maximum posterior head regions and bilaterally symmetrical. Polymorphic mid upper frequency modest voltage theta activity is seen centrally and symmetrically. Beta activity is seen bifrontally and symmetric. Photic stimulation provokes a modest driving response with no photo myogenic a photo paroxysmal components. no potentially epileptogenic activity is seen Interpretation normal EEG during wakefulness Clinical Correlation this is a normal EEG during wakefulness revealing no evidence for focal or generalized encephalopathy and no evidence for potentially epileptogenic activity Sebastian Parish MD
[2021-02-14] MEDS: FERROUS SULFATE 325 MG TAB PO SCH ×2 (15:42→20:33)
[2021-02-14] MEDS: IBUPROFEN 600 MG TAB PO PRN ×2 (15:44→20:20)
[2021-02-14] MEDS ORDERED: LABETALOL HCL 100 MG TAB ONE (17:41)
[2021-02-14] MEDS: ACETAMINOPHEN 325 MG TAB PO PRN ×2 (17:49→23:53)
[2021-02-14] MEDS: LABETALOL HCL 100 MG TAB PO SCH (20:08)
[2021-02-14 20:42] LABS: Hematocrit (blood only) 26.9 % (37-47); Hemoglobin 8.5 g/dL (12.0-16.0); Mean Corpuscular Hemoglobin 25.5 pg (25-34); Mean Corpuscular Hgb Conc 31.6 g/dL (32-36); Mean Corpuscular Volume 80.8 fL (80-100); Mean Platelet Volume 10.7 fL (7.4-10.4); Platelet Count 209 K/uL (130-400); RDW Coefficient of Variation 20.3 % (11.5-14.5); RDW Standard Deviation 60.3 fL (36.4-46.3); Red Blood Count 3.33 M/uL (4.2-5.4); White Blood Count 17.85 K/uL (4.8-10.8)
[2021-02-14 20:52] LABS: Anisocytosis Present; Basophils # (auto) 0.01 K/uL (0-0.2); Basophils % (auto) 0.1 %; Echinocytes 1+; Eosinophils # (auto) 0.04 K/uL (0-0.5); Eosinophils % (auto) 0.2 %; Hypochromasia Present; Immature Granulocytes # (auto) 0.04 K/uL (0.00-0.02); Immature Granulocytes % (auto) 0.2 %; Lymphocytes # (auto) 2.66 K/uL (1.2-3.4); Lymphocytes % (auto) 14.9 %; Monocytes # (auto) 1.53 K/uL (0.11-0.59); Monocytes % (auto) 8.6 %; Neutrophils # (auto) 13.57 K/uL (1.4-6.5); Ovalocytes 1+; Polychromasia 1+
[2021-02-14 21:05] LABS: Albumin Globulin Ratio 0.7 (0.9-2); Albumin Level 2.2 gm/dl (3.4-5.0); BUN Creatinine Ratio 8.2 (10-20); Bilirubin,Total 0.2 mg/dl (0.2-1); Creatinine Clr Calc Pharmacy 109.4 ml/min; Est GFR (African American) 122.2 ml/min; Est GFR (Non-African American) 105.4 ml/min; Globulin 3.1 gm/dl (2.5-4.0); Potassium 4.6 mmol/L (3.5-5.1); Total Protein 5.3 gm/dl (6.4-8.2)
[2021-02-14] MEDS ORDERED: GADOBUTROL 65ML VIAL IV ONE (23:13)
[2021-02-15] MEDS: IBUPROFEN 600 MG TAB PO PRN ×4 (02:52→20:45)
[2021-02-15] MEDS: LACTATED RINGER'S 1,000 ML IV PRN (04:07)
[2021-02-15] MEDS ORDERED: PATIENT'S OWN CONTROLLED MED 3 SCH (06:00)
[2021-02-15] MEDS: METHADONE ORAL SOLN 2 MG/ML PO SCH (06:27)
[2021-02-15 06:52] LABS: Hematocrit (blood only) 22.8 % (37-47); Hemoglobin 7.3 g/dL (12.0-16.0); Mean Corpuscular Hemoglobin 25.5 pg (25-34); Mean Corpuscular Volume 79.7 fL (80-100); Mean Platelet Volume 10.6 fL (7.4-10.4); Platelet Count 171 K/uL (130-400); RDW Standard Deviation 58.3 fL (36.4-46.3); Red Blood Count 2.86 M/uL (4.2-5.4); White Blood Count 14.95 K/uL (4.8-10.8)
--- NOTE | 2021-02-15 08:11 | Magnetic Resonance Report ---
MR venography head wo con CLINICAL HISTORY: r/o venous thrombosis. Prior seizure. TECHNIQUE: MRV of the brain was performed without contrast according to standard departmental protoco l. COMPARISON STUDY: Head CT 03/11/2019. FINDINGS: The visualized internal jugular veins, sigmoid sinuses, transverse sinuses, straight sinus, vein of Marcin, internal cerebral veins, and superior sagittal sinus are patent. IMPRESSION: No evidence for dural venous sinus thrombosis. ACT 112: Negative or not required by law. Electronically signed by: Franklin William M.D. 02/15/2021 8:09 AM
--- NOTE | 2021-02-15 08:22 | Hospitalist Progress Note ---
Date of Service February 15, 2021 Assessment & Plan (1) Seizure-like activity: Plan: Does not appear secondary to withdrawal at this time. Neurology consulted for evaluation for potential seizure disorder although may have simply been secondary to eclampsia in the setting of elevated BP and proteinuria. Per neuro: could be García-Tirado attack or brief seizure activity associated with hypotension vs. vasovagal episode vs. secondary to eclampsia Further work -up as below EEG obtained - negative Brain MRI - No acute intracranial abnormality. MR venography head wo con - No evidence for dural venous sinus thrombosis. No recurrent activity since delivery. (2) Opioid dependence: Plan: - Continue methadone as taking outpatient (3) : Plan: s/p spontaneous vaginal delivery today - care per primary service (4) Anxiety: (5) Depression: Admission and Anticipated Discharge Date Admission Date: February 14, 2021 Subjective Pt seen in follow up of poss. seizure post vag. delivery Currently sitting up in bed in NAD She is feeling well, smiling Denies any fever, chills, chest pain, shortness of breath, abd. pain, n/v No more episodes off seizure like activity Review of Systems Review of Systems: All systems reviewed & are unremarkable except as noted in Subjective Physical Exam Physical Exam: Constitutional:L young F in no acut e distress Eyes: PERRL, EOMI, conju nctivae normal, an icteric sclerae ENMT: external ear and n ose normal, oropha rynx normal Neck:L supple Respiratory: no respiratory dis tress and no labor ed breathing, lung s clear to auscult ation bilaterally; no rales, no rhon chi and no wheezes Cardiovascular:L regular rate and r egular rhythm, no murmur, dorsalis p adilson pulses presen t and radial pulse s present Gastrointestinal ( Abdomen): normal bowel sound s; abdomen not dis tended Percussion /Palpation: abdome n soft Musculoskeletal: normocephalic, atr aumatic and neck s upple Skin: + pallor; no rodrick dice Neurologic: moves all extremit ies; no focal jena r deficits and not confused Motor/S ensory: no tremor and no fasciculati ons Cranial Nerve s: PERRL,EOM intac t bilaterally, nor mal facial strengt h, tongue midline, able to rotate he ad bilaterally, ab le to elevate shou lders bilaterally and symmetric todd te elevation Psychiatric: A+Ox3, euthymic af fect Results & Data Results & Data ([facility]) Vital Signs (Past 12 Hours) Vital Signs Temp Pulse Resp BP Pulse Ox 02/15/21 08:14 71 97 02/15/21 08:09 70 98 02/15/21 08:04 71 97 02/15/21 08:00 16 02/15/21 07:59 71 97 02/15/21 07:54 69 97 02/15/21 07:49 72 97 02/15/21 07:44 74 97 02/15/21 07:42 69 115/70 02/15/21 07:39 71 97 02/15/21 07:34 73 98 02/15/21 07:29 76 98 02/15/21 07:24 77 97 02/15/21 07:19 69 99 02/15/21 07:14 62 98 02/15/21 07:09 64 99 02/15/21 07:04 65 99 02/15/21 07:00 16 02/15/21 06:59 65 100 02/15/21 06:54 66 99 02/15/21 06:49 68 99 02/15/21 06:44 72 98 02/15/21 06:42 71 135/85 02/15/21 06:39 84 98 02/15/21 06:34 75 99 02/15/21 06:30 18 02/15/21 06:29 89 98 02/15/21 06:24 69 99 02/15/21 06:19 77 98 02/15/21 06:14 75 98 02/15/21 06:09 75 98 02/15/21 06:04 76 99 02/15/21 05:59 73 96 02/15/21 05:55 18 02/15/21 05:54 73 97 02/15/21 05:49 64 97 02/15/21 05:44 72 98 02/15/21 05:42 71 118/68 02/15/21 05:39 67 97 02/15/21 05:34 70 99 02/15/21 05:29 80 99 02/15/21 05:24 83 100 02/15/21 05:19 83 99 02/15/21 05:14 84 99 02/15/21 05:09 87 99 02/15/21 05:04 88 99 02/15/21 04:59 83 98 02/15/21 04:54 88 99 02/15/21 04:49 85 99 02/15/21 04:44 83 100 02/15/21 04:42 85 126/84 02/15/21 04:39 88 99 02/15/21 04:34 81 100 02/15/21 04:29 88 98 02/15/21 04:24 75 98 02/15/21 04:19 81 99 02/15/21 04:14 82 98 02/15/21 04:09 82 97 02/15/21 04:04 87 98 02/15/21 03:59 83 96 02/15/21 03:54 82 99 02/15/21 03:49 71 98 02/15/21 03:44 85 98 02/15/21 03:42 93 H 123/68 02/15/21 03:39 80 97 02/15/21 03:34 78 98 02/15/21 03:29 80 98 02/15/21 03:24 83 97 02/15/21 03:19 87 97 02/15/21 03:15 18 02/15/21 03:14 88 98 02/15/21 03:09 85 100 02/15/21 03:07 91 H 91 02/15/21 03:04 91 H 99 02/15/21 02:59 89 99 02/15/21 02:54 89 98 02/15/21 02:49 93 H 99 02/15/21 02:44 85 98 02/15/21 02:42 88 119/62 02/15/21 02:39 84 97 02/15/21 02:34 89 100 02/15/21 02:29 104 H 95 02/15/21 02:24 77 96 02/15/21 02:22 88 93 02/15/21 02:19 81 97 02/15/21 02:15 18 02/15/21 02:14 83 97 02/15/21 02:11 82 94 02/15/21 02:09 79 98 02/15/21 02:04 78 96 02/15/21 01:59 78 97 02/15/21 01:54 75 94 02/15/21 01:49 76 95 02/15/21 01:44 77 98 02/15/21 01:42 75 142/84 H 02/15/21 01:39 74 99 02/15/21 01:34 87 96 02/15/21 01:29 82 97 02/15/21 01:24 81 97 02/15/21 01:19 77 99 02/15/21 01:16 76 135/88 02/15/21 01:15 16 02/15/21 01:14 78 98 02/15/21 01:09 84 97 02/15/21 01:04 83 96 02/15/21 01:02 71 93 02/15/21 00:59 76 95 02/15/21 00:54 76 96 02/15/21 00:51 75 94 02/15/21 00:49 69 95 02/15/21 00:44 72 96 02/15/21 00:42 71 156/90 H 02/15/21 00:39 73 96 02/15/21 00:34 74 96 02/15/21 00:29 76 97 02/15/21 00:25 74 93 02/15/21 00:24 73 97 02/15/21 00:19 74 97 02/15/21 00:14 70 96 02/15/21 00:09 78 98 02/15/21 00:04 74 96 02/14/21 23:59 77 96 02/14/21 23:54 70 97 02/14/21 23:49 78 96 02/14/21 23:44 77 96 02/14/21 23:39 72 97 02/14/21 23:36 36.8 C 72 18 108/67 02/14/21 23:34 75 96 02/14/21 21:54 88 144/89 H 98 02/14/21 21:49 81 97 02/14/21 21:44 82 96 02/14/21 21:41 79 94 02/14/21 21:39 88 97 02/14/21 21:34 84 96 02/14/21 21:29 79 96 02/14/21 21:26 87 93 02/14/21 21:24 81 95 02/14/21 21:21 83 92 02/14/21 21:19 89 94 02/14/21 21:15 82 93 02/14/21 21:14 86 95 02/14/21 21:09 77 96 02/14/21 21:04 76 95 02/14/21 21:01 79 122/67 94 02/14/21 20:59 79 95 02/14/21 20:54 78 96 02/14/21 20:49 77 96 02/14/21 20:44 73 96 02/14/21 20:39 77 95 02/14/21 20:34 84 98 02/14/21 20:29 79 99 02/14/21 20:24 68 100 02/14/21 20:21 76 92 02/14/21 20:19 69 100 Laboratory Results 02/15/21 02/14/21 02/14/21 Range/Units 06:03 20:28 20:28 WBC 14.95 H 17.85 H (4.8-10.8) K/uL RBC 2.86 L 3.33 L (4.2-5.4) M/uL Hgb 7.3 L 8.5 L (12.0-16.0) g/dL Hct 22.8 L 26.9 L (37-47) % MCV 79.7 L 80.8 D (80-100) fL MCH 25.5 25.5 (25-34) pg MCHC 32.0 31.6 L (32-36) g/dL RDW Std Deviation 58.3 H 60.3 H (36.4-46.3) fL RDW Coeff of Davida 20.0 H 20.3 H (11.5-14.5) % Plt Count 171 209 (130-400) K/uL MPV 10.6 H 10.7 H (7.4-10.4) fL Immature Gran % (Auto) 0.2 % Neut % (Auto) 76.0 % Lymph % (Auto) 14.9 % Payne % (Auto) 8.6 % Eos % (Auto) 0.2 % Baso % (Auto) 0.1 % Neut # (Auto) 13.57 H (1.4-6.5) K/uL Lymph # (Auto) 2.66 (1.2-3.4) K/uL Payne # (Auto) 1.53 H (0.11-0.59) K/uL Eos # (Auto) 0.04 (0-0.5) K/uL Baso # (Auto) 0.01 (0-0.2) K/uL Immature Gran # (Auto) 0.04 H (0.00-0.02) K/uL Polychromasia 1+ Hypochromasia Present Anisocytosis Present Microcytosis Ovalocytes 1+ Echinocytes 1+ PT (9.0-12.0) Seconds INR (0.9-1.1) APTT (21.0-31.0) Seconds PTT Ratio Fibrinogen (184-400) mg/dl Sodium 135 L (136-145) mmol/L Potassium 4.6 D (3.5-5.1) mmol/L Chloride 104 (98-107) mmol/L Carbon Dioxide 27 (21-32) mmol/L Anion Gap 4.0 (3-11) BUN 7 (7-18) mg/dl Creatinine 0.80 (0.6-1.2) mg/dl Est Cr Clr Drug Dosing 109.4 ml/min Est GFR ( Amer) 122.2 ml/min Est GFR (Non-Af Amer) 105.4 ml/min BUN/Creatinine Ratio 8.2 L (10-20) Glucose 108 H (70-99) mg/dl Uric Acid (2.6-7.2) mg/dl Calcium 7.0 L D (8.5-10.1) mg/dl Total Bilirubin 0.2 (0.2-1) mg/dl AST 17 (15-37) U/L ALT 14 (12-78) Alkaline Phosphatase 174 H (45-117) U/L Lactate Dehydrogenase (84-246) U/L Total Protein 5.3 L (6.4-8.2) gm/dl Albumin 2.2 L (3.4-5.0) gm/dl Globulin 3.1 (2.5-4.0) gm/dl Albumin/Globulin Ratio 0.7 L (0.9-2) Ur Random Creatinine mg/dl U Random Total Protein (0-11.9) mg/dl Protein/Creatinin Ratio (0-0.2) Urine Opiates Screen (Neg) Ur Methadone, Qual (Neg) U Methadone Metabolites Ur Methadone Confirm Urine Barbiturates (Neg) Ur Phencyclidine (PCP) (Neg) U Amphetamines Confirm U Amphetamin/Meth Scrn (Neg) U Methamphetamin Confrm Urine MDEA MDMA (Ecstasy) Screen (Neg) MDMA Urine MDMA U Benzodiazepines Scrn (Neg) Ur Cocaine Metabolite (Neg) U Marijuana (THC) Screen (Neg) U Marijuana THC Carboxy Drug Screen Comment Hep Bs Antigen (Neg) Hepatitis C Antibody (Neg) HIV 1&2 Ab/P24 Ag 4thGn (Neg) Rubella IgG Antibody (Immune) Blood Type Antibody Screen Crossmatch 02/14/21 02/14/21 02/14/21 Range/Units 09:07 09:02 09:02 WBC 12.62 H (4.8-10.8) K/uL RBC 2.89 L (4.2-5.4) M/uL Hgb 6.3 L* (12.0-16.0) g/dL Hct 21.3 L (37-47) % MCV 73.7 L (80-100) fL MCH 21.8 L (25-34) pg MCHC 29.6 L (32-36) g/dL RDW Std Deviation 44.1 (36.4-46.3) fL RDW Coeff of Davida 16.3 H (11.5-14.5) % Plt Count 292 (130-400) K/uL MPV 10.5 H (7.4-10.4) fL Immature Gran % (Auto) 0.4 % Neut % (Auto) 84.9 % Lymph % (Auto) 11.6 % Payne % (Auto) 2.9 % Eos % (Auto) 0.1 % Baso % (Auto) 0.1 % Neut # (Auto) 10.71 H (1.4-6.5) K/uL Lymph # (Auto) 1.47 (1.2-3.4) K/uL Payne # (Auto) 0.37 (0.11-0.59) K/uL Eos # (Auto) 0.01 (0-0.5) K/uL Baso # (Auto) 0.01 (0-0.2) K/uL Immature Gran # (Auto) 0.05 H (0.00-0.02) K/uL Polychromasia Hypochromasia Present Anisocytosis Microcytosis Present Ovalocytes Echinocytes PT 9.4 (9.0-12.0) Seconds INR 0.9 (0.9-1.1) APTT 20.5 L (21.0-31.0) Seconds PTT Ratio 0.8 Fibrinogen 335 (184-400) mg/dl Sodium (136-145) mmol/L Potassium (3.5-5.1) mmol/L Chloride (98-107) mmol/L Carbon Dioxide (21-32) mmol/L Anion Gap (3-11) BUN (7-18) mg/dl Creatinine (0.6-1.2) mg/dl Est Cr Clr Drug Dosing ml/min Est GFR ( Amer) ml/min Est GFR (Non-Af Amer) ml/min BUN/Creatinine Ratio (10-20) Glucose (70-99) mg/dl Uric Acid (2.6-7.2) mg/dl Calcium (8.5-10.1) mg/dl Total Bilirubin (0.2-1) mg/dl AST (15-37) U/L ALT (12-78) Alkaline Phosphatase (45-117) U/L Lactate Dehydrogenase 150 (84-246) U/L Total Protein (6.4-8.2) gm/dl Albumin (3.4-5.0) gm/dl Globulin (2.5-4.0) gm/dl Albumin/Globulin Ratio (0.9-2) Ur Random Creatinine mg/dl U Random Total Protein (0-11.9) mg/dl Protein/Creatinin Ratio (0-0.2) Urine Opiates Screen (Neg) Ur Methadone, Qual (Neg) U Methadone Metabolites Ur Methadone Confirm Urine Barbiturates (Neg) Ur Phencyclidine (PCP) (Neg) U Amphetamines Confirm U Amphetamin/Meth Scrn (Neg) U Methamphetamin Confrm Urine MDEA MDMA (Ecstasy) Screen (Neg) MDMA Urine MDMA U Benzodiazepines Scrn (Neg) Ur Cocaine Metabolite (Neg) U Marijuana (THC) Screen (Neg) U Marijuana THC Carboxy Drug Screen Comment Hep Bs Antigen (Neg) Hepatitis C Antibody (Neg) HIV 1&2 Ab/P24 Ag 4thGn (Neg) Rubella IgG Antibody (Immune) Blood Type Antibody Screen Crossmatch 02/14/21 02/14/21 02/14/21 Range/Units 09:02 08:48 08:46 WBC (4.8-10.8) K/uL RBC (4.2-5.4) M/uL Hgb 6.7 L* (12.0-16.0) g/dL Hct 22.7 L (37-47) % MCV (80-100) fL MCH (25-34) pg MCHC (32-36) g/dL RDW Std Deviation (36.4-46.3) fL RDW Coeff of Davida (11.5-14.5) % Plt Count (130-400) K/uL MPV (7.4-10.4) fL Immature Gran % (Auto) % Neut % (Auto) % Lymph % (Auto) % Payne % (Auto) % Eos % (Auto) % Baso % (Auto) % Neut # (Auto) (1.4-6.5) K/uL Lymph # (Auto) (1.2-3.4) K/uL Payne # (Auto) (0.11-0.59) K/uL Eos # (Auto) (0-0.5) K/uL Baso # (Auto) (0-0.2) K/uL Immature Gran # (Auto) (0.00-0.02) K/uL Polychromasia Hypochromasia Anisocytosis Microcytosis Ovalocytes Echinocytes PT (9.0-12.0) Seconds INR (0.9-1.1) APTT (21.0-31.0) Seconds PTT Ratio Fibrinogen (184-400) mg/dl Sodium 135 L (136-145) mmol/L Potassium 3.6 (3.5-5.1) mmol/L Chloride 107 (98-107) mmol/L Carbon Dioxide 20 L (21-32) mmol/L Anion Gap 8.0 (3-11) BUN 7 (7-18) mg/dl Creatinine 0.74 (0.6-1.2) mg/dl Est Cr Clr Drug Dosing 118.2 ml/min Est GFR ( Amer) 134.2 ml/min Est GFR (Non-Af Amer) 115.8 ml/min BUN/Creatinine Ratio 9.4 L (10-20) Glucose 132 H (70-99) mg/dl Uric Acid 4.1 (2.6-7.2) mg/dl Calcium 8.3 L (8.5-10.1) mg/dl Total Bilirubin 0.3 (0.2-1) mg/dl AST 11 L (15-37) U/L ALT 10 L (12-78) Alkaline Phosphatase 184 H D (45-117) U/L Lactate Dehydrogenase (84-246) U/L Total Protein 5.3 L (6.4-8.2) gm/dl Albumin 2.1 L (3.4-5.0) gm/dl Globulin 3.2 (2.5-4.0) gm/dl Albumin/Globulin Ratio 0.7 L (0.9-2) Ur Random Creatinine 227.0 mg/dl U Random Total Protein 43.7 H (0-11.9) mg/dl Protein/Creatinin Ratio 0.2 (0-0.2) Urine Opiates Screen (Neg) Ur Methadone, Qual (Neg) U Methadone Metabolites Ur Methadone Confirm Urine Barbiturates (Neg) Ur Phencyclidine (PCP) (Neg) U Amphetamines Confirm U Amphetamin/Meth Scrn (Neg) U Methamphetamin Confrm Urine MDEA MDMA (Ecstasy) Screen (Neg) MDMA Urine MDMA U Benzodiazepines Scrn (Neg) Ur Cocaine Metabolite (Neg) U Marijuana (THC) Screen (Neg) U Marijuana THC Carboxy Drug Screen Comment Hep Bs Antigen (Neg) Hepatitis C Antibody (Neg) HIV 1&2 Ab/P24 Ag 4thGn (Neg) Rubella IgG Antibody (Immune) Blood Type Antibody Screen Crossmatch 02/14/21 02/14/21 02/14/21 Range/Units 07:40 07:40 05:35 WBC (4.8-10.8) K/uL RBC (4.2-5.4) M/uL Hgb (12.0-16.0) g/dL Hct (37-47) % MCV (80-100) fL MCH (25-34) pg MCHC (32-36) g/dL RDW Std Deviation (36.4-46.3) fL RDW Coeff of Davida (11.5-14.5) % Plt Count (130-400) K/uL MPV (7.4-10.4) fL Immature Gran % (Auto) % Neut % (Auto) % Lymph % (Auto) % Payne % (Auto) % Eos % (Auto) % Baso % (Auto) % Neut # (Auto) (1.4-6.5) K/uL Lymph # (Auto) (1.2-3.4) K/uL Payne # (Auto) (0.11-0.59) K/uL Eos # (Auto) (0-0.5) K/uL Baso # (Auto) (0-0.2) K/uL Immature Gran # (Auto) (0.00-0.02) K/uL Polychromasia Hypochromasia Anisocytosis Microcytosis Ovalocytes Echinocytes PT (9.0-12.0) Seconds INR (0.9-1.1) APTT (21.0-31.0) Seconds PTT Ratio Fibrinogen (184-400) mg/dl Sodium (136-145) mmol/L Potassium (3.5-5.1) mmol/L Chloride (98-107) mmol/L Carbon Dioxide (21-32) mmol/L Anion Gap (3-11) BUN (7-18) mg/dl Creatinine (0.6-1.2) mg/dl Est Cr Clr Drug Dosing ml/min Est GFR ( Amer) ml/min Est GFR (Non-Af Amer) ml/min BUN/Creatinine Ratio (10-20) Glucose (70-99) mg/dl Uric Acid (2.6-7.2) mg/dl Calcium (8.5-10.1) mg/dl Total Bilirubin (0.2-1) mg/dl AST (15-37) U/L ALT (12-78) Alkaline Phosphatase (45-117) U/L Lactate Dehydrogenase (84-246) U/L Total Protein (6.4-8.2) gm/dl Albumin (3.4-5.0) gm/dl Globulin (2.5-4.0) gm/dl Albumin/Globulin Ratio (0.9-2) Ur Random Creatinine mg/dl U Random Total Protein (0-11.9) mg/dl Protein/Creatinin Ratio (0-0.2) Urine Opiates Screen Neg (Neg) Ur Methadone, Qual Pos H (Neg) U Methadone Metabolites Pending Ur Methadone Confirm Pending Urine Barbiturates Neg (Neg) Ur Phencyclidine (PCP) Neg (Neg) U Amphetamines Confirm Pending U Amphetamin/Meth Scrn Pos H (Neg) U Methamphetamin Confrm Pending Urine MDEA Pending MDMA (Ecstasy) Screen Pos H (Neg) MDMA Pending Urine MDMA Pending U Benzodiazepines Scrn Neg (Neg) Ur Cocaine Metabolite Neg (Neg) U Marijuana (THC) Screen Pos H (Neg) U Marijuana THC Carboxy Pending Drug Screen Comment Pending Hep Bs Antigen (Neg) Hepatitis C Antibody (Neg) HIV 1&2 Ab/P24 Ag 4thGn Neg (Neg) Rubella IgG Antibody (Immune) Blood Type Antibody Screen Crossmatch 02/14/21 02/14/21 Range/Units 05:35 05:35 WBC (4.8-10.8) K/uL RBC (4.2-5.4) M/uL Hgb (12.0-16.0) g/dL Hct (37-47) % MCV (80-100) fL MCH (25-34) pg MCHC (32-36) g/dL RDW Std Deviation (36.4-46.3) fL RDW Coeff of Davida (11.5-14.5) % Plt Count (130-400) K/uL MPV (7.4-10.4) fL Immature Gran % (Auto) % Neut % (Auto) % Lymph % (Auto) % Payne % (Auto) % Eos % (Auto) % Baso % (Auto) % Neut # (Auto) (1.4-6.5) K/uL Lymph # (Auto) (1.2-3.4) K/uL Payne # (Auto) (0.11-0.59) K/uL Eos # (Auto) (0-0.5) K/uL Baso # (Auto) (0-0.2) K/uL Immature Gran # (Auto) (0.00-0.02) K/uL Polychromasia Hypochromasia Anisocytosis Microcytosis Ovalocytes Echinocytes PT (9.0-12.0) Seconds INR (0.9-1.1) APTT (21.0-31.0) Seconds PTT Ratio Fibrinogen (184-400) mg/dl Sodium (136-145) mmol/L Potassium (3.5-5.1) mmol/L Chloride (98-107) mmol/L Carbon Dioxide (21-32) mmol/L Anion Gap (3-11) BUN (7-18) mg/dl Creatinine (0.6-1.2) mg/dl Est Cr Clr Drug Dosing ml/min Est GFR ( Amer) ml/min Est GFR (Non-Af Amer) ml/min BUN/Creatinine Ratio (10-20) Glucose (70-99) mg/dl Uric Acid (2.6-7.2) mg/dl Calcium (8.5-10.1) mg/dl Total Bilirubin (0.2-1) mg/dl AST (15-37) U/L ALT (12-78) Alkaline Phosphatase (45-117) U/L Lactate Dehydrogenase (84-246) U/L Total Protein (6.4-8.2) gm/dl Albumin (3.4-5.0) gm/dl Globulin (2.5-4.0) gm/dl Albumin/Globulin Ratio (0.9-2) Ur Random Creatinine mg/dl U Random Total Protein (0-11.9) mg/dl Protein/Creatinin Ratio (0-0.2) Urine Opiates Screen (Neg) Ur Methadone, Qual (Neg) U Methadone Metabolites Ur Methadone Confirm Urine Barbiturates (Neg) Ur Phencyclidine (PCP) (Neg) U Amphetamines Confirm U Amphetamin/Meth Scrn (Neg) U Methamphetamin Confrm Urine MDEA MDMA (Ecstasy) Screen (Neg) MDMA Urine MDMA U Benzodiazepines Scrn (Neg) Ur Cocaine Metabolite (Neg) U Marijuana (THC) Screen (Neg) U Marijuana THC Carboxy Drug Screen Comment Hep Bs Antigen Neg (Neg) Hepatitis C Antibody Neg (Neg) HIV 1&2 Ab/P24 Ag 4thGn (Neg) Rubella IgG Antibody Immune (Immune) Blood Type O Positive Antibody Screen NEGATIVE Crossmatch See Detail Medications Administered Current Inpatient Medications Acetaminophen (Acetaminophen 325 Mg Tab) 650 mg PO Q6H PRN PRN Reason: Pain/OLIVAREZ/Fever Stop: 03/16/21 09:17 Last Admin: 02/14/21 23:53 Dose: 650 mg Documented by: Benzocaine (Benzocaine 20% Aer Spr 82.5 Gm Can) 1 appln EXT PRN PRN PRN Reason: Perineal Discomfort Stop: 03/16/21 09:17 Last Admin: 02/14/21 15:42 Dose: 82.5 appln Documented by: Bisacodyl (Bisacodyl 5 Mg Tabec) 5 mg PO 2000 JANET Stop: 02/15/21 20:01 Bisacodyl (Bisacodyl 10 Mg Supp) 10 mg FL DAILY PRN PRN Reason: No BM on 2nd post- day Stop: 03/16/21 09:17 Cocaine HCl (Supercream 0.870% 15 Gm Jar) 1 gm EXT BID PRN PRN Reason: Hemorrhoidal Inflammation Stop: 02/28/21 09:17 Docusate Sodium (Docusate Sodium 100 Mg Cap) 100 mg PO DAILY@ [facility] Stop: 03/16/21 20:59 Ferrous Sulfate (Ferrous Sulfate 325 Mg Tab) 325 mg PO TID [facility] Stop: 03/16/21 13:59 Last Admin: 02/14/21 20:33 Dose: 325 mg Documented by: Hydrocortisone (Hydrocortisone Acetate 25 Mg Supp) 25 mg FL BID PRN PRN Reason: Hemorrhoidal Inflammation Stop: 03/16/21 09:17 Lactated Ringer's (Lr) 1,000 mls @ 125 mls/hr IV .Q8H PRN; Protocol PRN Reason: L&D Protocol Stop: 02/16/21 05:20 Last Admin: 02/15/21 04:07 Dose: 75 mls/hr Documented by: Penicillin G Potassium 3 mu/ (Dextrose) 106 mls @ 100 mls/hr IV Q4H PRN PRN Reason: GBS(+) Until Delivery Stop: 02/24/21 08:20 Oxytocin (Pitocin) 30 units in 500 mls @ 333.333 mls/hr IV .Q1H30M PRN; Protocol PRN Reason: Bleeding Control Stop: 03/16/21 05:20 Last Titration: 02/14/21 09:28 Dose: Infused Documented by: Oxytocin (Pitocin) 30 units in 500 mls @ 333.333 mls/hr IV .Q1H30M PRN; Protocol PRN Reason: Bleeding Control Stop: 03/16/21 09:17 Magnesium Sulfate (Magnesium Sulfate / Wtr) 40 gm in 1,000 mls @ 50 mls/hr IV .Q20H [facility] Stop: 03/16/21 09:29 Last Admin: 02/14/21 23:42 Dose: 50 mls/hr Documented by: Ibuprofen (Ibuprofen 600 Mg Tab) 600 mg PO Q4H PRN PRN Reason: Pain/OLIVAREZ/Cramping/Fever Stop: 03/16/21 09:17 Last Admin: 02/15/21 02:52 Dose: 600 mg Documented by: Labetalol HCl (Labetalol Hcl 100 Mg Tab) 100 mg PO BID [facility] Stop: 03/16/21 17:44 Last Admin: 02/14/21 20:08 Dose: Not Given Documented by: Methadone HCl (Methadone Oral Soln 2 Mg/Ml) 55 mg PO Q24H [facility] Stop: 03/02/21 05:59 Non-Formulary Medication (Patient's Own Controlled Med 3) 1 ea N/A Q24H [facility] Stop: 03/02/21 05:59 Prenat Multivit/Hickman/Iron/Folic Ac ( Vitamin 1 Tab) 1 tab PO DAILY@08 [facility] Stop: 03/17/21 07:59
[2021-02-15] MEDS: ACETAMINOPHEN 325 MG TAB PO PRN ×2 (08:25→16:40)
[2021-02-15] MEDS: FERROUS SULFATE 325 MG TAB PO SCH ×3 (08:26→20:45)
[2021-02-15] MEDS: PRENATAL VITAMIN 1 TAB PO SCH (08:26)
[2021-02-15] MEDS: DOCUSATE SODIUM 100 MG CAP PO SCH ×4 (08:26→20:45)
[2021-02-15] MEDS: LABETALOL HCL 100 MG TAB PO SCH ×2 (08:26→20:44)
--- NOTE | 2021-02-15 08:26 | Magnetic Resonance Report ---
Brain MRI WITH AND WITHOUT CONTRAST HISTORY: seizure like activity r/o seizure focus TECHNIQUE: Multiplanar multisequence MRI of the brain was performed both before and after the intrave nous administration of contrast. COMPARISON STUDY: None. FINDINGS: There are no areas of restricted diffusion to suggest acute infarction. The midline structu res are intact. The paranasal sinuses are clear. The mastoid air cells are clear. The ventricles and sulci are within normal limits for age. There is no mass, hematoma, midline shift. The major vascular flow-voids at the skull base are well maintained. Postcontrast sequences show no areas of abnormal e nhancement. IMPRESSION: No acute intracranial abnormality. ACT 112: Negative or not required by law. Electronically signed by: Franklin William M.D. 02/15/2021 8:24 AM
[2021-02-15 09:20] LABS: Albumin Globulin Ratio 0.7 (0.9-2); BUN Creatinine Ratio 8.7 (10-20); Bilirubin,Total 0.2 mg/dl (0.2-1); Calcium 6.9 mg/dl (8.5-10.1); Creatinine Clr Calc Pharmacy 119.9 ml/min; Est GFR (African American) 136.5 ml/min; Est GFR (Non-African American) 117.7 ml/min; Magnesium 6.1 mg/dl (1.8-2.4); Phosphorus 3.8 mg/dl (2.5-4.9); Potassium 4.6 mmol/L (3.5-5.1)
--- NOTE | 2021-02-15 12:59 | Communication Note ---
Date of Service: February 15, 2021 I saw Natividad today along with a new baby reviewed the neurology notes from yesterday and results of her MRI and venography studies along with the EEG which I interpreted yesterday. This appears to been a vagal mediated syncopal event with some convulsive movements and rapid clearing of her mental status back to normal and there is nothing about it to suggest a seizure at this point Currently she is awake alert oriented as recall of the events preceding the syncopal event and events that transpired afterwards Neurology at this time is not going to recommend anticonvulsants unless of course she would have another an equivocal witnessed seizure and I do not think she needs follow-up in our clinic at this time unless again seizure-like activ ity would recur after she returns home. We are going to sign off the case but I will be available for the next week for reevaluation as I understand she is going to be here for another 3 to 4 days Sebastian Parish MD
--- NOTE | 2021-02-15 15:26 | Obstetrical Progress Note ---
Date of Service February 15, 2021 Assessment & Plan (1) Seizure-like activity: (2) : (3) Opioid dependence: repeat labs in AM no seizure meds per neurology Subjective Ambulation: limited ambulation Voiding: no voiding problems Passing Gas:: Yes Diet Tolerance:: regular diet Lochia:: Small Feeding Type:: breast feeding Current Pain Level(1-10): 0 no SOB or dizziness denies headaches or visual sx Physical Exam Constitutional WD/WN, vitals as above comfortable abdomen soft and non-tender no edema neg Lisa's Results & Data ([facility]) Vital Signs (Past 12 Hours) Vital Signs Pulse Resp BP Pulse Ox 02/15/21 11:30 18 02/15/21 11:20 76 135/80 02/15/21 09:59 73 125/69 02/15/21 09:54 76 98 02/15/21 09:49 71 99 02/15/21 09:44 70 98 02/15/21 09:39 76 98 02/15/21 09:34 79 99 02/15/21 09:29 66 99 02/15/21 09:26 76 90 02/15/21 09:24 75 98 02/15/21 09:19 66 98 02/15/21 09:17 81 116/71 02/15/21 09:14 69 99 02/15/21 09:09 69 98 02/15/21 09:04 73 98 02/15/21 09:00 18 02/15/21 08:59 69 99 02/15/21 08:54 67 99 02/15/21 08:49 72 99 02/15/21 08:44 71 100 02/15/21 08:42 74 89 L 02/15/21 08:39 79 100 02/15/21 08:34 69 99 02/15/21 08:29 64 100 02/15/21 08:27 67 121/76 02/15/21 08:24 76 100 02/15/21 08:19 71 100 02/15/21 08:14 71 97 02/15/21 08:09 70 98 02/15/21 08:04 71 97 02/15/21 08:00 16 02/15/21 07:59 71 97 02/15/21 07:54 69 97 02/15/21 07:49 72 97 02/15/21 07:44 74 97 02/15/21 07:42 69 115/70 02/15/21 07:39 71 97 02/15/21 07:34 73 98 02/15/21 07:29 76 98 02/15/21 07:24 77 97 02/15/21 07:19 69 99 02/15/21 07:14 62 98 02/15/21 07:09 64 99 02/15/21 07:04 65 99 02/15/21 07:00 16 02/15/21 06:59 65 100 02/15/21 06:54 66 99 02/15/21 06:49 68 99 02/15/21 06:44 72 98 02/15/21 06:42 71 135/85 02/15/21 06:39 84 98 02/15/21 06:34 75 99 02/15/21 06:30 18 02/15/21 06:29 89 98 02/15/21 06:24 69 99 02/15/21 06:19 77 98 02/15/21 06:14 75 98 02/15/21 06:09 75 98 02/15/21 06:04 76 99 02/15/21 05:59 73 96 02/15/21 05:55 18 02/15/21 05:54 73 97 02/15/21 05:49 64 97 02/15/21 05:44 72 98 02/15/21 05:42 71 118/68 02/15/21 05:39 67 97 02/15/21 05:34 70 99 02/15/21 05:29 80 99 02/15/21 05:24 83 100 02/15/21 05:19 83 99 02/15/21 05:14 84 99 02/15/21 05:09 87 99 02/15/21 05:04 88 99 02/15/21 04:59 83 98 02/15/21 04:54 88 99 02/15/21 04:49 85 99 02/15/21 04:44 83 100 02/15/21 04:42 85 126/84 02/15/21 04:39 88 99 02/15/21 04:34 81 100 02/15/21 04:29 88 98 02/15/21 04:24 75 98 02/15/21 04:19 81 99 02/15/21 04:14 82 98 02/15/21 04:09 82 97 02/15/21 04:04 87 98 02/15/21 03:59 83 96 02/15/21 03:54 82 99 02/15/21 03:49 71 98 02/15/21 03:44 85 98 02/15/21 03:42 93 H 123/68 02/15/21 03:39 80 97 02/15/21 03:34 78 98 02/15/21 03:29 80 98 02/15/21 03:24 83 97 Laboratory Results Laboratory Results - last 72 hr 02/14/21 02/14/21 02/14/21 05:27 05:35 05:35 WBC 11.33 H RBC 3.59 L Hgb 8.0 L Hct 26.6 L MCV 74.1 L MCH 22.3 L MCHC 30.1 L RDW Std Deviation 44.4 RDW Coeff of Davida 16.2 H Plt Count 207 MPV 10.4 Immature Gran % (Auto) Neut % (Auto) Lymph % (Auto) [place] % (Auto) Eos % (Auto) Baso % (Auto) Neut # (Auto) Lymph # (Auto) [place] # (Auto) Eos # (Auto) Baso # (Auto) Immature Gran # (Auto) Polychromasia Hypochromasia Anisocytosis Microcytosis Ovalocytes Echinocytes PT INR APTT PTT Ratio Fibrinogen Sodium Potassium Chloride Carbon Dioxide Anion Gap BUN Creatinine Est Cr Clr Drug Dosing Est GFR ( Amer) Est GFR (Non-Af Amer) BUN/Creatinine Ratio Glucose Uric Acid Calcium Phosphorus Magnesium Total Bilirubin AST ALT Alkaline Phosphatase Lactate Dehydrogenase Total Protein Albumin Globulin Albumin/Globulin Ratio Ur Random Creatinine U Random Total Protein Protein/Creatinin Ratio Urine Opiates Screen Ur Methadone, Qual Urine Barbiturates Ur Phencyclidine (PCP) U Amphetamin/Meth Scrn MDMA (Ecstasy) Screen U Benzodiazepines Scrn Ur Cocaine Metabolite U Marijuana (THC) Screen Hep Bs Antigen Hepatitis C Antibody HIV 1&2 Ab/P24 Ag 4thGn Rubella IgG Antibody SARS-CoV-2, RNA, NAAT NEGATIVE Blood Type O Positive Antibody Screen NEGATIVE Crossmatch See Detail 02/14/21 02/14/21 02/14/21 05:35 05:35 07:40 WBC RBC Hgb Hct MCV MCH MCHC RDW Std Deviation RDW Coeff of Davida Plt Count MPV Immature Gran % (Auto) Neut % (Auto) Lymph % (Auto) [place] % (Auto) Eos % (Auto) Baso % (Auto) Neut # (Auto) Lymph # (Auto) [place] # (Auto) Eos # (Auto) Baso # (Auto) Immature Gran # (Auto) Polychromasia Hypochromasia Anisocytosis Microcytosis Ovalocytes Echinocytes PT INR APTT PTT Ratio Fibrinogen Sodium Potassium Chloride Carbon Dioxide Anion Gap BUN Creatinine Est Cr Clr Drug Dosing Est GFR ( Amer) Est GFR (Non-Af Amer) BUN/Creatinine Ratio Glucose Uric Acid Calcium Phosphorus Magnesium Total Bilirubin AST ALT Alkaline Phosphatase Lactate Dehydrogenase Total Protein Albumin Globulin Albumin/Globulin Ratio Ur Random Creatinine U Random Total Protein Protein/Creatinin Ratio Urine Opiates Screen Neg Ur Methadone, Qual Pos H Urine Barbiturates Neg Ur Phencyclidine (PCP) Neg U Amphetamin/Meth Scrn Pos H MDMA (Ecstasy) Screen Pos H U Benzodiazepines Scrn Neg Ur Cocaine Metabolite Neg U Marijuana (THC) Screen Pos H Hep Bs Antigen Neg Hepatitis C Antibody Neg HIV 1&2 Ab/P24 Ag 4thGn Neg Rubella IgG Antibody Immune SARS-CoV-2, RNA, NAAT Blood Type Antibody Screen Crossmatch 02/14/21 02/14/21 02/14/21 08:46 08:48 09:02 WBC RBC Hgb 6.7 L* Hct 22.7 L MCV MCH MCHC RDW Std Deviation RDW Coeff of Davida Plt Count MPV Immature Gran % (Auto) Neut % (Auto) Lymph % (Auto) [place] % (Auto) Eos % (Auto) Baso % (Auto) Neut # (Auto) Lymph # (Auto) [place] # (Auto) Eos # (Auto) Baso # (Auto) Immature Gran # (Auto) Polychromasia Hypochromasia Anisocytosis Microcytosis Ovalocytes Echinocytes PT INR APTT PTT Ratio Fibrinogen Sodium 135 L Potassium 3.6 Chloride 107 Carbon Dioxide 20 L Anion Gap 8.0 BUN 7 Creatinine 0.74 Est Cr Clr Drug Dosing 118.2 Est GFR ( Amer) 134.2 Est GFR (Non-Af Amer) 115.8 BUN/Creatinine Ratio 9.4 L Glucose 132 H Uric Acid 4.1 Calcium 8.3 L Phosphorus Magnesium Total Bilirubin 0.3 AST 11 L ALT 10 L Alkaline Phosphatase 184 H D Lactate Dehydrogenase Total Protein 5.3 L Albumin 2.1 L Globulin 3.2 Albumin/Globulin Ratio 0.7 L Ur Random Creatinine 227.0 U Random Total Protein 43.7 H Protein/Creatinin Ratio 0.2 Urine Opiates Screen Ur Methadone, Qual Urine Barbiturates Ur Phencyclidine (PCP) U Amphetamin/Meth Scrn MDMA (Ecstasy) Screen U Benzodiazepines Scrn Ur Cocaine Metabolite U Marijuana (THC) Screen Hep Bs Antigen Hepatitis C Antibody HIV 1&2 Ab/P24 Ag 4thGn Rubella IgG Antibody SARS-CoV-2, RNA, NAAT Blood Type Antibody Screen Crossmatch 02/14/21 02/14/21 02/14/21 09:02 09:02 09:07 WBC 12.62 H RBC 2.89 L Hgb 6.3 L* Hct 21.3 L MCV 73.7 L MCH 21.8 L MCHC 29.6 L RDW Std Deviation 44.1 RDW Coeff of Davida 16.3 H Plt Count 292 MPV 10.5 H Immature Gran % (Auto) 0.4 Neut % (Auto) 84.9 Lymph % (Auto) 11.6 [place] % (Auto) 2.9 Eos % (Auto) 0.1 Baso % (Auto) 0.1 Neut # (Auto) 10.71 H Lymph # (Auto) 1.47 [place] # (Auto) 0.37 Eos # (Auto) 0.01 Baso # (Auto) 0.01 Immature Gran # (Auto) 0.05 H Polychromasia Hypochromasia Present Anisocytosis Microcytosis Present Ovalocytes Echinocytes PT 9.4 INR 0.9 APTT 20.5 L PTT Ratio 0.8 Fibrinogen 335 Sodium Potassium Chloride Carbon Dioxide Anion Gap BUN Creatinine Est Cr Clr Drug Dosing Est GFR ( Amer) Est GFR (Non-Af Amer) BUN/Creatinine Ratio Glucose Uric Acid Calcium Phosphorus Magnesium Total Bilirubin AST ALT Alkaline Phosphatase Lactate Dehydrogenase 150 Total Protein Albumin Globulin Albumin/Globulin Ratio Ur Random Creatinine U Random Total Protein Protein/Creatinin Ratio Urine Opiates Screen Ur Methadone, Qual Urine Barbiturates Ur Phencyclidine (PCP) U Amphetamin/Meth Scrn MDMA (Ecstasy) Screen U Benzodiazepines Scrn Ur Cocaine Metabolite U Marijuana (THC) Screen Hep Bs Antigen Hepatitis C Antibody HIV 1&2 Ab/P24 Ag 4thGn Rubella IgG Antibody SARS-CoV-2, RNA, NAAT Blood Type Antibody Screen Crossmatch 02/14/21 02/14/21 02/15/21 20:28 20:28 06:03 WBC 17.85 H 14.95 H RBC 3.33 L 2.86 L Hgb 8.5 L 7.3 L Hct 26.9 L 22.8 L MCV 80.8 D 79.7 L MCH 25.5 25.5 MCHC 31.6 L 32.0 RDW Std Deviation 60.3 H 58.3 H RDW Coeff of Davida 20.3 H 20.0 H Plt Count 209 171 MPV 10.7 H 10.6 H Immature Gran % (Auto) 0.2 Neut % (Auto) 76.0 Lymph % (Auto) 14.9 [place] % (Auto) 8.6 Eos % (Auto) 0.2 Baso % (Auto) 0.1 Neut # (Auto) 13.57 H Lymph # (Auto) 2.66 [place] # (Auto) 1.53 H Eos # (Auto) 0.04 Baso # (Auto) 0.01 Immature Gran # (Auto) 0.04 H Polychromasia 1+ Hypochromasia Present Anisocytosis Present Microcytosis Ovalocytes 1+ Echinocytes 1+ PT INR APTT PTT Ratio Fibrinogen Sodium 135 L Potassium 4.6 D Chloride 104 Carbon Dioxide 27 Anion Gap 4.0 BUN 7 Creatinine 0.80 Est Cr Clr Drug Dosing 109.4 Est GFR ( Amer) 122.2 Est GFR (Non-Af Amer) 105.4 BUN/Creatinine Ratio 8.2 L Glucose 108 H Uric Acid Calcium 7.0 L D Phosphorus Magnesium Total Bilirubin 0.2 AST 17 ALT 14 Alkaline Phosphatase 174 H Lactate Dehydrogenase Total Protein 5.3 L Albumin 2.2 L Globulin 3.1 Albumin/Globulin Ratio 0.7 L Ur Random Creatinine U Random Total Protein Protein/Creatinin Ratio Urine Opiates Screen Ur Methadone, Qual Urine Barbiturates Ur Phencyclidine (PCP) U Amphetamin/Meth Scrn MDMA (Ecstasy) Screen U Benzodiazepines Scrn Ur Cocaine Metabolite U Marijuana (THC) Screen Hep Bs Antigen Hepatitis C Antibody HIV 1&2 Ab/P24 Ag 4thGn Rubella IgG Antibody SARS-CoV-2, RNA, NAAT Blood Type Antibody Screen Crossmatch 02/15/21 08:27 WBC RBC Hgb Hct MCV MCH MCHC RDW Std Deviation RDW Coeff of Davida Plt Count MPV Immature Gran % (Auto) Neut % (Auto) Lymph % (Auto) [place] % (Auto) Eos % (Auto) Baso % (Auto) Neut # (Auto) Lymph # (Auto) [place] # (Auto) Eos # (Auto) Baso # (Auto) Immature Gran # (Auto) Polychromasia Hypochromasia Anisocytosis Microcytosis Ovalocytes Echinocytes PT INR APTT PTT Ratio Fibrinogen Sodium 135 L Potassium 4.6 Chloride 106 Carbon Dioxide 25 Anion Gap 4.0 BUN 6 L Creatinine 0.73 Est Cr Clr Drug Dosing 119.9 Est GFR ( Amer) 136.5 Est GFR (Non-Af Amer) 117.7 BUN/Creatinine Ratio 8.7 L Glucose 103 H Uric Acid Calcium 6.9 L Phosphorus 3.8 Magnesium 6.1 H* Total Bilirubin 0.2 AST 18 ALT 12 Alkaline Phosphatase 155 H Lactate Dehydrogenase Total Protein 5.0 L Albumin 2.0 L Globulin 3.0 Albumin/Globulin Ratio 0.7 L Ur Random Creatinine U Random Total Protein Protein/Creatinin Ratio Urine Opiates Screen Ur Methadone, Qual Urine Barbiturates Ur Phencyclidine (PCP) U Amphetamin/Meth Scrn MDMA (Ecstasy) Screen U Benzodiazepines Scrn Ur Cocaine Metabolite U Marijuana (THC) Screen Hep Bs Antigen Hepatitis C Antibody HIV 1&2 Ab/P24 Ag 4thGn Rubella IgG Antibody SARS-CoV-2, RNA, NAAT Blood Type Antibody Screen Crossmatch
[2021-02-15] MEDS ORDERED: bisacodyL 5 MG TABEC PO SCH (20:00)
[2021-02-16] MEDS: IBUPROFEN 600 MG TAB PO PRN ×4 (01:12→21:29)
[2021-02-16] MEDS: ACETAMINOPHEN 325 MG TAB PO PRN ×2 (04:18→23:47)
[2021-02-16] MEDS: METHADONE HCL 10 MG TAB PO SCH (05:24)
[2021-02-16] MEDS ORDERED: METHADONE ORAL SOLN 2 MG/ML PO SCH ×2 (06:00)
[2021-02-16] MEDS ORDERED: PATIENT'S OWN CONTROLLED MED 3 SCH (06:00)
[2021-02-16 06:28] LABS: Hematocrit (blood only) 20.3 % (37-47); Hemoglobin 6.4 g/dL (12.0-16.0); Mean Corpuscular Hgb Conc 31.5 g/dL (32-36); Mean Corpuscular Volume 82.5 fL (80-100); Mean Platelet Volume 10.4 fL (7.4-10.4); Platelet Count 188 K/uL (130-400); RDW Coefficient of Variation 20.3 % (11.5-14.5); RDW Standard Deviation 60.7 fL (36.4-46.3); Red Blood Count 2.46 M/uL (4.2-5.4)
[2021-02-16] MEDS ORDERED: SODIUM CHLORIDE 0.9% 250 ML IV PRN (06:32)
[2021-02-16 06:40] LABS: Albumin Level 1.9 gm/dl (3.4-5.0); BUN Creatinine Ratio 10.3 (10-20); Calcium 7.8 mg/dl (8.5-10.1); Creatinine Clr Calc Pharmacy 104.2 ml/min; Est GFR (African American) 115.1 ml/min; Est GFR (Non-African American) 99.4 ml/min; Magnesium 2.4 mg/dl (1.8-2.4); Potassium 4.4 mmol/L (3.5-5.1)
[2021-02-16 06:44] LABS: Albumin Globulin Ratio 0.7 (0.9-2); Bilirubin,Total 0.2 mg/dl (0.2-1); Globulin 2.9 gm/dl (2.5-4.0); Phosphorus 4.6 mg/dl (2.5-4.9); Total Protein 4.8 gm/dl (6.4-8.2)
[2021-02-16] MEDS ORDERED: diphenhydrAMINE Capsule 25 MG CAP PO ONE (07:23)
[2021-02-16] MEDS ORDERED: diphenhydrAMINE Capsule 25 MG CAP ONE (07:33)
[2021-02-16] MEDS: DOCUSATE SODIUM 100 MG CAP PO SCH ×2 (07:37→21:29)
[2021-02-16] MEDS: PRENATAL VITAMIN 1 TAB PO SCH (07:37)
--- NOTE | 2021-02-16 08:54 | Obstetrical Progress Note ---
Date of Service February 16, 2021 Assessment & Plan Admission and Anticipated Discharge Date Admission Date: February 14, 2021 Subjective Patient is seen and examined. She feels well, no complaints. Getting 1st unit of blood. She had dizziness this morning in BR and her Hb was 6.4, ordered 2 units of PRBCC. She has h/o anxiety and was on Paxil before. Desires to start again due to recurring anxiety episode. She has used in for years in the past since age 16. Used after last and when she was breast feeding. Voiding without difficulty Tolerating regular diet with out N&V Bleeding is minimal No fever/ chills/ CP/ SOB/ N&V/ Leg pain/ OLIVAREZ/ Change in vision Breast feeding without problems Vital Signs Temp Pulse Pulse Resp BP BP Pulse Ox 02/16/21 08:10 36.8 C 81 18 129/74 98 02/16/21 07:55 36.6 C 70 18 135/82 98 02/16/21 07:40 36.9 C 70 18 124/79 99 02/16/21 04:30 36.7 C 73 18 130/87 98 02/15/21 23:45 36.6 C 79 18 136/80 99 02/15/21 20:00 36.7 C 74 18 120/78 98 02/15/21 16:45 36.7 C 71 16 133/89 99 02/15/21 12:30 36.6 C 81 16 119/75 98 02/15/21 11:30 18 02/15/21 11:20 76 135/80 02/15/21 09:59 73 125/69 02/15/21 09:54 76 98 02/15/21 09:49 71 99 02/15/21 09:44 70 98 02/15/21 09:39 76 98 02/15/21 09:34 79 99 02/15/21 09:29 66 99 02/15/21 09:26 76 90 02/15/21 09:24 75 98 02/15/21 09:19 66 98 02/15/21 09:17 81 116/71 02/15/21 09:14 69 99 02/15/21 09:09 69 98 02/15/21 09:04 73 98 02/15/21 09:00 18 02/15/21 08:59 69 99 02/15/21 08:54 67 99 Intake and Output 02/15/21 02/16/21 02/16/21 22:59 06:59 14:59 Intake Total 0 / 0 Output Total Balance - 499.0 0 / 0 Intake: Intake (Blood Product) Amt 0 / 0 Packed Cells, Leukoreduced 2 0 / 0 Unit [id number] Output: # Bowel Movements Other: # Unmeasured Voids 2 Lab Results 02/14/21 02/14/21 02/14/21 Range/Units 05:27 05:35 05:35 WBC 11.33 H (4.8-10.8) K/uL RBC 3.59 L (4.2-5.4) M/uL Hgb 8.0 L (12.0-16.0) g/dL Hct 26.6 L (37-47) % MCV 74.1 L (80-100) fL MCH 22.3 L (25-34) pg MCHC 30.1 L (32-36) g/dL RDW Std Deviation 44.4 (36.4-46.3) fL RDW Coeff of Davida 16.2 H (11.5-14.5) % Plt Count 207 (130-400) K/uL MPV 10.4 (7.4-10.4) fL Immature Gran % (Auto) % Neut % (Auto) % Lymph % (Auto) % [place] % (Auto) % Eos % (Auto) % Baso % (Auto) % Neut # (Auto) (1.4-6.5) K/uL Lymph # (Auto) (1.2-3.4) K/uL [place] # (Auto) (0.11-0.59) K/uL Eos # (Auto) (0-0.5) K/uL Baso # (Auto) (0-0.2) K/uL Immature Gran # (Auto) (0.00-0.02) K/uL Polychromasia Hypochromasia Anisocytosis Microcytosis Ovalocytes Echinocytes PT (9.0-12.0) Seconds INR (0.9-1.1) APTT (21.0-31.0) Seconds PTT Ratio Fibrinogen (184-400) mg/dl Sodium (136-145) mmol/L Potassium (3.5-5.1) mmol/L Chloride (98-107) mmol/L Carbon Dioxide (21-32) mmol/L Anion Gap (3-11) BUN (7-18) mg/dl Creatinine (0.6-1.2) mg/dl Est Cr Clr Drug Dosing ml/min Est GFR ( Amer) ml/min Est GFR (Non-Af Amer) ml/min BUN/Creatinine Ratio (10-20) Glucose (70-99) mg/dl Uric Acid (2.6-7.2) mg/dl Calcium (8.5-10.1) mg/dl Phosphorus (2.5-4.9) mg/dl Magnesium (1.8-2.4) mg/dl Total Bilirubin (0.2-1) mg/dl AST (15-37) U/L ALT (12-78) Alkaline Phosphatase (45-117) U/L Lactate Dehydrogenase (84-246) U/L Total Protein (6.4-8.2) gm/dl Albumin (3.4-5.0) gm/dl Globulin (2.5-4.0) gm/dl Albumin/Globulin Ratio (0.9-2) Ur Random Creatinine mg/dl U Random Total Protein (0-11.9) mg/dl Protein/Creatinin Ratio (0-0.2) Urine Opiates Screen (Neg) Ur Methadone, Qual (Neg) Urine Barbiturates (Neg) Ur Phencyclidine (PCP) (Neg) U Amphetamin/Meth Scrn (Neg) MDMA (Ecstasy) Screen (Neg) U Benzodiazepines Scrn (Neg) Ur Cocaine Metabolite (Neg) U Marijuana (THC) Screen (Neg) RPR (Nonreactive) Hep Bs Antigen (Neg) Hepatitis C Antibody (Neg) HIV 1&2 Ab/P24 Ag 4thGn (Neg) Rubella IgG Antibody (Immune) SARS-CoV-2, RNA, NAAT NEGATIVE (NEGATIVE) Blood Type O Positive Antibody Screen NEGATIVE Crossmatch See Detail 02/14/21 02/14/21 02/14/21 Range/Units 05:35 05:35 05:35 WBC (4.8-10.8) K/uL RBC (4.2-5.4) M/uL Hgb (12.0-16.0) g/dL Hct (37-47) % MCV (80-100) fL MCH (25-34) pg MCHC (32-36) g/dL RDW Std Deviation (36.4-46.3) fL RDW Coeff of Davida (11.5-14.5) % Plt Count (130-400) K/uL MPV (7.4-10.4) fL Immature Gran % (Auto) % Neut % (Auto) % Lymph % (Auto) % [place] % (Auto) % Eos % (Auto) % Baso % (Auto) % Neut # (Auto) (1.4-6.5) K/uL Lymph # (Auto) (1.2-3.4) K/uL [place] # (Auto) (0.11-0.59) K/uL Eos # (Auto) (0-0.5) K/uL Baso # (Auto) (0-0.2) K/uL Immature Gran # (Auto) (0.00-0.02) K/uL Polychromasia Hypochromasia Anisocytosis Microcytosis Ovalocytes Echinocytes PT (9.0-12.0) Seconds INR (0.9-1.1) APTT (21.0-31.0) Seconds PTT Ratio Fibrinogen (184-400) mg/dl Sodium (136-145) mmol/L Potassium (3.5-5.1) mmol/L Chloride (98-107) mmol/L Carbon Dioxide (21-32) mmol/L Anion Gap (3-11) BUN (7-18) mg/dl Creatinine (0.6-1.2) mg/dl Est Cr Clr Drug Dosing ml/min Est GFR ( Amer) ml/min Est GFR (Non-Af Amer) ml/min BUN/Creatinine Ratio (10-20) Glucose (70-99) mg/dl Uric Acid (2.6-7.2) mg/dl Calcium (8.5-10.1) mg/dl Phosphorus (2.5-4.9) mg/dl Magnesium (1.8-2.4) mg/dl Total Bilirubin (0.2-1) mg/dl AST (15-37) U/L ALT (12-78) Alkaline Phosphatase (45-117) U/L Lactate Dehydrogenase (84-246) U/L Total Protein (6.4-8.2) gm/dl Albumin (3.4-5.0) gm/dl Globulin (2.5-4.0) gm/dl Albumin/Globulin Ratio (0.9-2) Ur Random Creatinine mg/dl U Random Total Protein (0-11.9) mg/dl Protein/Creatinin Ratio (0-0.2) Urine Opiates Screen (Neg) Ur Methadone, Qual (Neg) Urine Barbiturates (Neg) Ur Phencyclidine (PCP) (Neg) U Amphetamin/Meth Scrn (Neg) MDMA (Ecstasy) Screen (Neg) U Benzodiazepines Scrn (Neg) Ur Cocaine Metabolite (Neg) U Marijuana (THC) Screen (Neg) RPR Nonreactive (Nonreactive) Hep Bs Antigen Neg (Neg) Hepatitis C Antibody Neg (Neg) HIV 1&2 Ab/P24 Ag 4thGn Neg (Neg) Rubella IgG Antibody Immune (Immune) SARS-CoV-2, RNA, NAAT (NEGATIVE) Blood Type Antibody Screen Crossmatch 02/14/21 02/14/21 02/14/21 Range/Units 07:40 08:46 08:48 WBC (4.8-10.8) K/uL RBC (4.2-5.4) M/uL Hgb 6.7 L* (12.0-16.0) g/dL Hct 22.7 L (37-47) % MCV (80-100) fL MCH (25-34) pg MCHC (32-36) g/dL RDW Std Deviation (36.4-46.3) fL RDW Coeff of Davida (11.5-14.5) % Plt Count (130-400) K/uL MPV (7.4-10.4) fL Immature Gran % (Auto) % Neut % (Auto) % Lymph % (Auto) % [place] % (Auto) % Eos % (Auto) % Baso % (Auto) % Neut # (Auto) (1.4-6.5) K/uL Lymph # (Auto) (1.2-3.4) K/uL [place] # (Auto) (0.11-0.59) K/uL Eos # (Auto) (0-0.5) K/uL Baso # (Auto) (0-0.2) K/uL Immature Gran # (Auto) (0.00-0.02) K/uL Polychromasia Hypochromasia Anisocytosis Microcytosis Ovalocytes Echinocytes PT (9.0-12.0) Seconds INR (0.9-1.1) APTT (21.0-31.0) Seconds PTT Ratio Fibrinogen (184-400) mg/dl Sodium (136-145) mmol/L Potassium (3.5-5.1) mmol/L Chloride (98-107) mmol/L Carbon Dioxide (21-32) mmol/L Anion Gap (3-11) BUN (7-18) mg/dl Creatinine (0.6-1.2) mg/dl Est Cr Clr Drug Dosing ml/min Est GFR ( Amer) ml/min Est GFR (Non-Af Amer) ml/min BUN/Creatinine Ratio (10-20) Glucose (70-99) mg/dl Uric Acid (2.6-7.2) mg/dl Calcium (8.5-10.1) mg/dl Phosphorus (2.5-4.9) mg/dl Magnesium (1.8-2.4) mg/dl Total Bilirubin (0.2-1) mg/dl AST (15-37) U/L ALT (12-78) Alkaline Phosphatase (45-117) U/L Lactate Dehydrogenase (84-246) U/L Total Protein (6.4-8.2) gm/dl Albumin (3.4-5.0) gm/dl Globulin (2.5-4.0) gm/dl Albumin/Globulin Ratio (0.9-2) Ur Random Creatinine 227.0 mg/dl U Random Total Protein 43.7 H (0-11.9) mg/dl Protein/Creatinin Ratio 0.2 (0-0.2) Urine Opiates Screen Neg (Neg) Ur Methadone, Qual Pos H (Neg) Urine Barbiturates Neg (Neg) Ur Phencyclidine (PCP) Neg (Neg) U Amphetamin/Meth Scrn Pos H (Neg) MDMA (Ecstasy) Screen Pos H (Neg) U Benzodiazepines Scrn Neg (Neg) Ur Cocaine Metabolite Neg (Neg) U Marijuana (THC) Screen Pos H (Neg) RPR (Nonreactive) Hep Bs Antigen (Neg) Hepatitis C Antibody (Neg) HIV 1&2 Ab/P24 Ag 4thGn (Neg) Rubella IgG Antibody (Immune) SARS-CoV-2, RNA, NAAT (NEGATIVE) Blood Type Antibody Screen Crossmatch 02/14/21 02/14/21 02/14/21 Range/Units 09:02 09:02 09:02 WBC (4.8-10.8) K/uL RBC (4.2-5.4) M/uL Hgb (12.0-16.0) g/dL Hct (37-47) % MCV (80-100) fL MCH (25-34) pg MCHC (32-36) g/dL RDW Std Deviation (36.4-46.3) fL RDW Coeff of Davida (11.5-14.5) % Plt Count (130-400) K/uL MPV (7.4-10.4) fL Immature Gran % (Auto) % Neut % (Auto) % Lymph % (Auto) % [place] % (Auto) % Eos % (Auto) % Baso % (Auto) % Neut # (Auto) (1.4-6.5) K/uL Lymph # (Auto) (1.2-3.4) K/uL [place] # (Auto) (0.11-0.59) K/uL Eos # (Auto) (0-0.5) K/uL Baso # (Auto) (0-0.2) K/uL Immature Gran # (Auto) (0.00-0.02) K/uL Polychromasia Hypochromasia Anisocytosis Microcytosis Ovalocytes Echinocytes PT 9.4 (9.0-12.0) Seconds INR 0.9 (0.9-1.1) APTT 20.5 L (21.0-31.0) Seconds PTT Ratio 0.8 Fibrinogen 335 (184-400) mg/dl Sodium 135 L (136-145) mmol/L Potassium 3.6 (3.5-5.1) mmol/L Chloride 107 (98-107) mmol/L Carbon Dioxide 20 L (21-32) mmol/L Anion Gap 8.0 (3-11) BUN 7 (7-18) mg/dl Creatinine 0.74 (0.6-1.2) mg/dl Est Cr Clr Drug Dosing 118.2 ml/min Est GFR ( Amer) 134.2 ml/min Est GFR (Non-Af Amer) 115.8 ml/min BUN/Creatinine Ratio 9.4 L (10-20) Glucose 132 H (70-99) mg/dl Uric Acid 4.1 (2.6-7.2) mg/dl Calcium 8.3 L (8.5-10.1) mg/dl Phosphorus (2.5-4.9) mg/dl Magnesium (1.8-2.4) mg/dl Total Bilirubin 0.3 (0.2-1) mg/dl AST 11 L (15-37) U/L ALT 10 L (12-78) Alkaline Phosphatase 184 H D (45-117) U/L Lactate Dehydrogenase 150 (84-246) U/L Total Protein 5.3 L (6.4-8.2) gm/dl Albumin 2.1 L (3.4-5.0) gm/dl Globulin 3.2 (2.5-4.0) gm/dl Albumin/Globulin Ratio 0.7 L (0.9-2) Ur Random Creatinine mg/dl U Random Total Protein (0-11.9) mg/dl Protein/Creatinin Ratio (0-0.2) Urine Opiates Screen (Neg) Ur Methadone, Qual (Neg) Urine Barbiturates (Neg) Ur Phencyclidine (PCP) (Neg) U Amphetamin/Meth Scrn (Neg) MDMA (Ecstasy) Screen (Neg) U Benzodiazepines Scrn (Neg) Ur Cocaine Metabolite (Neg) U Marijuana (THC) Screen (Neg) RPR (Nonreactive) Hep Bs Antigen (Neg) Hepatitis C Antibody (Neg) HIV 1&2 Ab/P24 Ag 4thGn (Neg) Rubella IgG Antibody (Immune) SARS-CoV-2, RNA, NAAT (NEGATIVE) Blood Type Antibody Screen Crossmatch 02/14/21 02/14/21 02/14/21 Range/Units 09:07 20:28 20:28 WBC 12.62 H 17.85 H (4.8-10.8) K/uL RBC 2.89 L 3.33 L (4.2-5.4) M/uL Hgb 6.3 L* 8.5 L (12.0-16.0) g/dL Hct 21.3 L 26.9 L (37-47) % MCV 73.7 L 80.8 D (80-100) fL MCH 21.8 L 25.5 (25-34) pg MCHC 29.6 L 31.6 L (32-36) g/dL RDW Std Deviation 44.1 60.3 H (36.4-46.3) fL RDW Coeff of Davida 16.3 H 20.3 H (11.5-14.5) % Plt Count 292 209 (130-400) K/uL MPV 10.5 H 10.7 H (7.4-10.4) fL Immature Gran % (Auto) 0.4 0.2 % Neut % (Auto) 84.9 76.0 % Lymph % (Auto) 11.6 14.9 % [place] % (Auto) 2.9 8.6 % Eos % (Auto) 0.1 0.2 % Baso % (Auto) 0.1 0.1 % Neut # (Auto) 10.71 H 13.57 H (1.4-6.5) K/uL Lymph # (Auto) 1.47 2.66 (1.2-3.4) K/uL [place] # (Auto) 0.37 1.53 H (0.11-0.59) K/uL Eos # (Auto) 0.01 0.04 (0-0.5) K/uL Baso # (Auto) 0.01 0.01 (0-0.2) K/uL Immature Gran # (Auto) 0.05 H 0.04 H (0.00-0.02) K/uL Polychromasia 1+ Hypochromasia Present Present Anisocytosis Present Microcytosis Present Ovalocytes 1+ Echinocytes 1+ PT (9.0-12.0) Seconds INR (0.9-1.1) APTT (21.0-31.0) Seconds PTT Ratio Fibrinogen (184-400) mg/dl Sodium 135 L (136-145) mmol/L Potassium 4.6 D (3.5-5.1) mmol/L Chloride 104 (98-107) mmol/L Carbon Dioxide 27 (21-32) mmol/L Anion Gap 4.0 (3-11) BUN 7 (7-18) mg/dl Creatinine 0.80 (0.6-1.2) mg/dl Est Cr Clr Drug Dosing 109.4 ml/min Est GFR ( Amer) 122.2 ml/min Est GFR (Non-Af Amer) 105.4 ml/min BUN/Creatinine Ratio 8.2 L (10-20) Glucose 108 H (70-99) mg/dl Uric Acid (2.6-7.2) mg/dl Calcium 7.0 L D (8.5-10.1) mg/dl Phosphorus (2.5-4.9) mg/dl Magnesium (1.8-2.4) mg/dl Total Bilirubin 0.2 (0.2-1) mg/dl AST 17 (15-37) U/L ALT 14 (12-78) Alkaline Phosphatase 174 H (45-117) U/L Lactate Dehydrogenase (84-246) U/L Total Protein 5.3 L (6.4-8.2) gm/dl Albumin 2.2 L (3.4-5.0) gm/dl Globulin 3.1 (2.5-4.0) gm/dl Albumin/Globulin Ratio 0.7 L (0.9-2) Ur Random Creatinine mg/dl U Random Total Protein (0-11.9) mg/dl Protein/Creatinin Ratio (0-0.2) Urine Opiates Screen (Neg) Ur Methadone, Qual (Neg) Urine Barbiturates (Neg) Ur Phencyclidine (PCP) (Neg) U Amphetamin/Meth Scrn (Neg) MDMA (Ecstasy) Screen (Neg) U Benzodiazepines Scrn (Neg) Ur Cocaine Metabolite (Neg) U Marijuana (THC) Screen (Neg) RPR (Nonreactive) Hep Bs Antigen (Neg) Hepatitis C Antibody (Neg) HIV 1&2 Ab/P24 Ag 4thGn (Neg) Rubella IgG Antibody (Immune) SARS-CoV-2, RNA, NAAT (NEGATIVE) Blood Type Antibody Screen Crossmatch 02/15/21 02/15/21 02/16/21 Range/Units 06:03 08:27 05:56 WBC 14.95 H (4.8-10.8) K/uL RBC 2.86 L (4.2-5.4) M/uL Hgb 7.3 L (12.0-16.0) g/dL Hct 22.8 L (37-47) % MCV 79.7 L (80-100) fL MCH 25.5 (25-34) pg MCHC 32.0 (32-36) g/dL RDW Std Deviation 58.3 H (36.4-46.3) fL RDW Coeff of Davida 20.0 H (11.5-14.5) % Plt Count 171 (130-400) K/uL MPV 10.6 H (7.4-10.4) fL Immature Gran % (Auto) % Neut % (Auto) % Lymph % (Auto) % [place] % (Auto) % Eos % (Auto) % Baso % (Auto) % Neut # (Auto) (1.4-6.5) K/uL Lymph # (Auto) (1.2-3.4) K/uL [place] # (Auto) (0.11-0.59) K/uL Eos # (Auto) (0-0.5) K/uL Baso # (Auto) (0-0.2) K/uL Immature Gran # (Auto) (0.00-0.02) K/uL Polychromasia Hypochromasia Anisocytosis Microcytosis Ovalocytes Echinocytes PT (9.0-12.0) Seconds INR (0.9-1.1) APTT (21.0-31.0) Seconds PTT Ratio Fibrinogen (184-400) mg/dl Sodium 135 L 139 (136-145) mmol/L Potassium 4.6 4.4 (3.5-5.1) mmol/L Chloride 106 110 H (98-107) mmol/L Carbon Dioxide 25 25 (21-32) mmol/L Anion Gap 4.0 4.0 (3-11) BUN 6 L 9 (7-18) mg/dl Creatinine 0.73 0.84 (0.6-1.2) mg/dl Est Cr Clr Drug Dosing 119.9 104.2 ml/min Est GFR ( Amer) 136.5 115.1 ml/min Est GFR (Non-Af Amer) 117.7 99.4 ml/min BUN/Creatinine Ratio 8.7 L 10.3 (10-20) Glucose 103 H 79 (70-99) mg/dl Uric Acid (2.6-7.2) mg/dl Calcium 6.9 L 7.8 L (8.5-10.1) mg/dl Phosphorus 3.8 4.6 (2.5-4.9) mg/dl Magnesium 6.1 H* 2.4 (1.8-2.4) mg/dl Total Bilirubin 0.2 0.2 (0.2-1) mg/dl AST 18 15 (15-37) U/L ALT 12 12 (12-78) Alkaline Phosphatase 155 H 139 H (45-117) U/L Lactate Dehydrogenase (84-246) U/L Total Protein 5.0 L 4.8 L (6.4-8.2) gm/dl Albumin 2.0 L 1.9 L (3.4-5.0) gm/dl Globulin 3.0 2.9 (2.5-4.0) gm/dl Albumin/Globulin Ratio 0.7 L 0.7 L (0.9-2) Ur Random Creatinine mg/dl U Random Total Protein (0-11.9) mg/dl Protein/Creatinin Ratio (0-0.2) Urine Opiates Screen (Neg) Ur Methadone, Qual (Neg) Urine Barbiturates (Neg) Ur Phencyclidine (PCP) (Neg) U Amphetamin/Meth Scrn (Neg) MDMA (Ecstasy) Screen (Neg) U Benzodiazepines Scrn (Neg) Ur Cocaine Metabolite (Neg) U Marijuana (THC) Screen (Neg) RPR (Nonreactive) Hep Bs Antigen (Neg) Hepatitis C Antibody (Neg) HIV 1&2 Ab/P24 Ag 4thGn (Neg) Rubella IgG Antibody (Immune) SARS-CoV-2, RNA, NAAT (NEGATIVE) Blood Type Antibody Screen Crossmatch 02/16/21 Range/Units 05:56 WBC 9.10 (4.8-10.8) K/uL RBC 2.46 L (4.2-5.4) M/uL Hgb 6.4 L* (12.0-16.0) g/dL Hct 20.3 L* (37-47) % MCV 82.5 (80-100) fL MCH 26.0 (25-34) pg MCHC 31.5 L (32-36) g/dL RDW Std Deviation 60.7 H (36.4-46.3) fL RDW Coeff of Davida 20.3 H (11.5-14.5) % Plt Count 188 (130-400) K/uL MPV 10.4 (7.4-10.4) fL Immature Gran % (Auto) % Neut % (Auto) % Lymph % (Auto) % [place] % (Auto) % Eos % (Auto) % Baso % (Auto) % Neut # (Auto) (1.4-6.5) K/uL Lymph # (Auto) (1.2-3.4) K/uL [place] # (Auto) (0.11-0.59) K/uL Eos # (Auto) (0-0.5) K/uL Baso # (Auto) (0-0.2) K/uL Immature Gran # (Auto) (0.00-0.02) K/uL Polychromasia Hypochromasia Anisocytosis Microcytosis Ovalocytes Echinocytes PT (9.0-12.0) Seconds INR (0.9-1.1) APTT (21.0-31.0) Seconds PTT Ratio Fibrinogen (184-400) mg/dl Sodium (136-145) mmol/L Potassium (3.5-5.1) mmol/L Chloride (98-107) mmol/L Carbon Dioxide (21-32) mmol/L Anion Gap (3-11) BUN (7-18) mg/dl Creatinine (0.6-1.2) mg/dl Est Cr Clr Drug Dosing ml/min Est GFR ( Amer) ml/min Est GFR (Non-Af Amer) ml/min BUN/Creatinine Ratio (10-20) Glucose (70-99) mg/dl Uric Acid (2.6-7.2) mg/dl Calcium (8.5-10.1) mg/dl Phosphorus (2.5-4.9) mg/dl Magnesium (1.8-2.4) mg/dl Total Bilirubin (0.2-1) mg/dl AST (15-37) U/L ALT (12-78) Alkaline Phosphatase (45-117) U/L Lactate Dehydrogenase (84-246) U/L Total Protein (6.4-8.2) gm/dl Albumin (3.4-5.0) gm/dl Globulin (2.5-4.0) gm/dl Albumin/Globulin Ratio (0.9-2) Ur Random Creatinine mg/dl U Random Total Protein (0-11.9) mg/dl Protein/Creatinin Ratio (0-0.2) Urine Opiates Screen (Neg) Ur Methadone, Qual (Neg) Urine Barbiturates (Neg) Ur Phencyclidine (PCP) (Neg) U Amphetamin/Meth Scrn (Neg) MDMA (Ecstasy) Screen (Neg) U Benzodiazepines Scrn (Neg) Ur Cocaine Metabolite (Neg) U Marijuana (THC) Screen (Neg) RPR (Nonreactive) Hep Bs Antigen (Neg) Hepatitis C Antibody (Neg) HIV 1&2 Ab/P24 Ag 4thGn (Neg) Rubella IgG Antibody (Immune) SARS-CoV-2, RNA, NAAT (NEGATIVE) Blood Type Antibody Screen Crossmatch PE: General: Alert, orientedx3, NAD Abd: soft, NT, fundus firm, below Umbilicus Perineum intact, Lochia rubra minimal Ext; NT, no edema, DTR 2+/2+ AP: 20 yo s/p , ppd# 2, seizure like activity after delivery Normal neurologic exam, EEG, MRI of brain s/p 24 hours of IV Magnesium VSS Afebrile doing well Anxiety , desires to restart Paxil Continue routine care All questions were answered D/C home tomorrow after she will get her Methadone Results & Data ([facility]) Vital Signs (Past 12 Hours) Vital Signs Temp Pulse Pulse Resp BP BP Pulse Ox 02/16/21 08:10 36.8 C 81 18 129/74 98 02/16/21 07:55 36.6 C 70 18 135/82 98 02/16/21 07:40 36.9 C 70 18 124/79 99 02/16/21 04:30 36.7 C 73 18 130/87 98 02/15/21 23:45 36.6 C 79 18 136/80 99
[2021-02-16] MEDS ORDERED: METHADONE HCL 10 MG TAB PO SCH (09:00)
[2021-02-16] MEDS: FERROUS SULFATE 325 MG TAB PO SCH ×3 (09:11→21:29)
[2021-02-16] MEDS: LABETALOL HCL 100 MG TAB PO SCH ×2 (09:48→21:30)
[2021-02-16] MEDS: PARoxetine HCL 10 MG TAB PO SCH (09:51)
[2021-02-16 16:05] LABS: Hematocrit (blood only) 25.5 % (37-47); Hemoglobin 8.2 g/dL (12.0-16.0); Mean Corpuscular Hemoglobin 26.5 pg (25-34); Mean Corpuscular Hgb Conc 32.2 g/dL (32-36); Mean Corpuscular Volume 82.5 fL (80-100); Mean Platelet Volume 10.6 fL (7.4-10.4); Platelet Count 193 K/uL (130-400); RDW Standard Deviation 57.2 fL (36.4-46.3); Red Blood Count 3.09 M/uL (4.2-5.4); White Blood Count 10.16 K/uL (4.8-10.8)
[2021-02-16 16:21] LABS: Basophils # (auto) 0.01 K/uL (0-0.2); Basophils % (auto) 0.1 %; Eosinophils # (auto) 0.15 K/uL (0-0.5); Eosinophils % (auto) 1.5 %; Immature Granulocytes # (auto) 0.04 K/uL (0.00-0.02); Immature Granulocytes % (auto) 0.4 %; Lymphocytes # (auto) 2.68 K/uL (1.2-3.4); Lymphocytes % (auto) 26.4 %; Monocytes # (auto) 0.76 K/uL (0.11-0.59); Monocytes % (auto) 7.5 %; Neutrophils # (auto) 6.52 K/uL (1.4-6.5); Neutrophils % (auto) 64.1 %
[2021-02-16] MEDS ORDERED: ONDANSETRON INJ 2 MG/ML 2 ML VIAL IV PRN (23:20)
[2021-02-16] MEDS ORDERED: ONDANSETRON 4 MG OD TAB PO PRN (23:22)
[2021-02-17] MEDS: IBUPROFEN 600 MG TAB PO PRN ×2 (05:05→12:42)
[2021-02-17] MEDS: METHADONE HCL 10 MG TAB PO SCH (05:46)
[2021-02-17] MEDS: FERROUS SULFATE 325 MG TAB PO SCH (07:31)
[2021-02-17] MEDS: PRENATAL VITAMIN 1 TAB PO SCH (07:31)
[2021-02-17] MEDS: LABETALOL HCL 100 MG TAB PO SCH (07:31)
[2021-02-17] MEDS: DOCUSATE SODIUM 100 MG CAP PO SCH (07:31)
[2021-02-17] MEDS: PARoxetine HCL 10 MG TAB PO SCH (07:43)
[2021-02-17 08:01] LABS: Basophils # (auto) 0.02 K/uL (0-0.2); Basophils % (auto) 0.2 %; Eosinophils # (auto) 0.31 K/uL (0-0.5); Eosinophils % (auto) 3.2 %; Hematocrit (blood only) 28.2 % (37-47); Immature Granulocytes # (auto) 0.03 K/uL (0.00-0.02); Immature Granulocytes % (auto) 0.3 %; Lymphocytes # (auto) 2.31 K/uL (1.2-3.4); Lymphocytes % (auto) 23.5 %; Mean Corpuscular Hemoglobin 26.5 pg (25-34); Mean Corpuscular Hgb Conc 31.9 g/dL (32-36); Mean Corpuscular Volume 82.9 fL (80-100); Mean Platelet Volume 10.8 fL (7.4-10.4); Monocytes # (auto) 0.58 K/uL (0.11-0.59); Monocytes % (auto) 5.9 %; Neutrophils # (auto) 6.59 K/uL (1.4-6.5); Neutrophils % (auto) 66.9 %; Platelet Count 231 K/uL (130-400); RDW Coefficient of Variation 19.2 % (11.5-14.5); RDW Standard Deviation 57.7 fL (36.4-46.3); White Blood Count 9.84 K/uL (4.8-10.8)
--- NOTE | 2021-02-17 08:43 | Obstetrical Progress Note ---
Date of Service February 17, 2021 Assessment & Plan Admission and Anticipated Discharge Date Admission Date: February 14, 2021 Subjective Patient is seen and examined. She feels well, no complaints. Ambulating without dizziness Voiding without difficulty Tolerating regular diet with out N&V Bleeding is minimal No fever/ chills/ CP/ SOB/ N&V/ Leg pain/ OLIVAREZ/ Change in vision Breast feeding without problems Vital Signs Temp Pulse Pulse Resp BP BP Pulse Ox 02/17/21 07:40 36.7 C 73 16 138/86 97 02/16/21 23:40 36.6 C 65 16 132/86 97 02/16/21 21:25 65 118/73 02/16/21 15:50 36.7 C 76 18 150/96 H 02/16/21 13:35 36.7 C 73 18 140/85 98 02/16/21 12:35 36.7 C 61 18 125/78 98 02/16/21 11:35 36.5 C 76 18 132/81 98 02/16/21 11:05 36.6 C 69 18 131/85 98 02/16/21 10:50 36.8 C 63 18 126/78 96 02/16/21 10:28 36.7 C 62 18 147/89 H 98 02/16/21 09:40 36.8 C 80 18 133/71 97 Lab Results 02/14/21 02/14/21 02/14/21 Range/Units 05:27 05:35 05:35 WBC 11.33 H (4.8-10.8) K/uL RBC 3.59 L (4.2-5.4) M/uL Hgb 8.0 L (12.0-16.0) g/dL Hct 26.6 L (37-47) % MCV 74.1 L (80-100) fL MCH 22.3 L (25-34) pg MCHC 30.1 L (32-36) g/dL RDW Std Deviation 44.4 (36.4-46.3) fL RDW Coeff of Davida 16.2 H (11.5-14.5) % Plt Count 207 (130-400) K/uL MPV 10.4 (7.4-10.4) fL Immature Gran % (Auto) % Neut % (Auto) % Lymph % (Auto) % Craig % (Auto) % Eos % (Auto) % Baso % (Auto) % Neut # (Auto) (1.4-6.5) K/uL Lymph # (Auto) (1.2-3.4) K/uL Craig # (Auto) (0.11-0.59) K/uL Eos # (Auto) (0-0.5) K/uL Baso # (Auto) (0-0.2) K/uL Immature Gran # (Auto) (0.00-0.02) K/uL Polychromasia Hypochromasia Anisocytosis Microcytosis Ovalocytes Echinocytes PT (9.0-12.0) Seconds INR (0.9-1.1) APTT (21.0-31.0) Seconds PTT Ratio Fibrinogen (184-400) mg/dl Sodium (136-145) mmol/L Potassium (3.5-5.1) mmol/L Chloride (98-107) mmol/L Carbon Dioxide (21-32) mmol/L Anion Gap (3-11) BUN (7-18) mg/dl Creatinine (0.6-1.2) mg/dl Est Cr Clr Drug Dosing ml/min Est GFR ( Amer) ml/min Est GFR (Non-Af Amer) ml/min BUN/Creatinine Ratio (10-20) Glucose (70-99) mg/dl Uric Acid (2.6-7.2) mg/dl Calcium (8.5-10.1) mg/dl Phosphorus (2.5-4.9) mg/dl Magnesium (1.8-2.4) mg/dl Total Bilirubin (0.2-1) mg/dl AST (15-37) U/L ALT (12-78) Alkaline Phosphatase (45-117) U/L Lactate Dehydrogenase (84-246) U/L Total Protein (6.4-8.2) gm/dl Albumin (3.4-5.0) gm/dl Globulin (2.5-4.0) gm/dl Albumin/Globulin Ratio (0.9-2) Ur Random Creatinine mg/dl U Random Total Protein (0-11.9) mg/dl Protein/Creatinin Ratio (0-0.2) Urine Opiates Screen (Neg) Ur Methadone, Qual (Neg) Urine Barbiturates (Neg) Ur Phencyclidine (PCP) (Neg) U Amphetamin/Meth Scrn (Neg) MDMA (Ecstasy) Screen (Neg) U Benzodiazepines Scrn (Neg) Ur Cocaine Metabolite (Neg) U Marijuana (THC) Screen (Neg) RPR (Nonreactive) Hep Bs Antigen (Neg) Hepatitis C Antibody (Neg) HIV 1&2 Ab/P24 Ag 4thGn (Neg) Rubella IgG Antibody (Immune) SARS-CoV-2, RNA, NAAT NEGATIVE (NEGATIVE) Blood Type O Positive Antibody Screen NEGATIVE Crossmatch See Detail 02/14/21 02/14/21 02/14/21 Range/Units 05:35 05:35 05:35 WBC (4.8-10.8) K/uL RBC (4.2-5.4) M/uL Hgb (12.0-16.0) g/dL Hct (37-47) % MCV (80-100) fL MCH (25-34) pg MCHC (32-36) g/dL RDW Std Deviation (36.4-46.3) fL RDW Coeff of Davida (11.5-14.5) % Plt Count (130-400) K/uL MPV (7.4-10.4) fL Immature Gran % (Auto) % Neut % (Auto) % Lymph % (Auto) % Craig % (Auto) % Eos % (Auto) % Baso % (Auto) % Neut # (Auto) (1.4-6.5) K/uL Lymph # (Auto) (1.2-3.4) K/uL Craig # (Auto) (0.11-0.59) K/uL Eos # (Auto) (0-0.5) K/uL Baso # (Auto) (0-0.2) K/uL Immature Gran # (Auto) (0.00-0.02) K/uL Polychromasia Hypochromasia Anisocytosis Microcytosis Ovalocytes Echinocytes PT (9.0-12.0) Seconds INR (0.9-1.1) APTT (21.0-31.0) Seconds PTT Ratio Fibrinogen (184-400) mg/dl Sodium (136-145) mmol/L Potassium (3.5-5.1) mmol/L Chloride (98-107) mmol/L Carbon Dioxide (21-32) mmol/L Anion Gap (3-11) BUN (7-18) mg/dl Creatinine (0.6-1.2) mg/dl Est Cr Clr Drug Dosing ml/min Est GFR ( Amer) ml/min Est GFR (Non-Af Amer) ml/min BUN/Creatinine Ratio (10-20) Glucose (70-99) mg/dl Uric Acid (2.6-7.2) mg/dl Calcium (8.5-10.1) mg/dl Phosphorus (2.5-4.9) mg/dl Magnesium (1.8-2.4) mg/dl Total Bilirubin (0.2-1) mg/dl AST (15-37) U/L ALT (12-78) Alkaline Phosphatase (45-117) U/L Lactate Dehydrogenase (84-246) U/L Total Protein (6.4-8.2) gm/dl Albumin (3.4-5.0) gm/dl Globulin (2.5-4.0) gm/dl Albumin/Globulin Ratio (0.9-2) Ur Random Creatinine mg/dl U Random Total Protein (0-11.9) mg/dl Protein/Creatinin Ratio (0-0.2) Urine Opiates Screen (Neg) Ur Methadone, Qual (Neg) Urine Barbiturates (Neg) Ur Phencyclidine (PCP) (Neg) U Amphetamin/Meth Scrn (Neg) MDMA (Ecstasy) Screen (Neg) U Benzodiazepines Scrn (Neg) Ur Cocaine Metabolite (Neg) U Marijuana (THC) Screen (Neg) RPR Nonreactive (Nonreactive) Hep Bs Antigen Neg (Neg) Hepatitis C Antibody Neg (Neg) HIV 1&2 Ab/P24 Ag 4thGn Neg (Neg) Rubella IgG Antibody Immune (Immune) SARS-CoV-2, RNA, NAAT (NEGATIVE) Blood Type Antibody Screen Crossmatch 02/14/21 02/14/21 02/14/21 Range/Units 07:40 08:46 08:48 WBC (4.8-10.8) K/uL RBC (4.2-5.4) M/uL Hgb 6.7 L* (12.0-16.0) g/dL Hct 22.7 L (37-47) % MCV (80-100) fL MCH (25-34) pg MCHC (32-36) g/dL RDW Std Deviation (36.4-46.3) fL RDW Coeff of Davida (11.5-14.5) % Plt Count (130-400) K/uL MPV (7.4-10.4) fL Immature Gran % (Auto) % Neut % (Auto) % Lymph % (Auto) % Craig % (Auto) % Eos % (Auto) % Baso % (Auto) % Neut # (Auto) (1.4-6.5) K/uL Lymph # (Auto) (1.2-3.4) K/uL Craig # (Auto) (0.11-0.59) K/uL Eos # (Auto) (0-0.5) K/uL Baso # (Auto) (0-0.2) K/uL Immature Gran # (Auto) (0.00-0.02) K/uL Polychromasia Hypochromasia Anisocytosis Microcytosis Ovalocytes Echinocytes PT (9.0-12.0) Seconds INR (0.9-1.1) APTT (21.0-31.0) Seconds PTT Ratio Fibrinogen (184-400) mg/dl Sodium (136-145) mmol/L Potassium (3.5-5.1) mmol/L Chloride (98-107) mmol/L Carbon Dioxide (21-32) mmol/L Anion Gap (3-11) BUN (7-18) mg/dl Creatinine (0.6-1.2) mg/dl Est Cr Clr Drug Dosing ml/min Est GFR ( Amer) ml/min Est GFR (Non-Af Amer) ml/min BUN/Creatinine Ratio (10-20) Glucose (70-99) mg/dl Uric Acid (2.6-7.2) mg/dl Calcium (8.5-10.1) mg/dl Phosphorus (2.5-4.9) mg/dl Magnesium (1.8-2.4) mg/dl Total Bilirubin (0.2-1) mg/dl AST (15-37) U/L ALT (12-78) Alkaline Phosphatase (45-117) U/L Lactate Dehydrogenase (84-246) U/L Total Protein (6.4-8.2) gm/dl Albumin (3.4-5.0) gm/dl Globulin (2.5-4.0) gm/dl Albumin/Globulin Ratio (0.9-2) Ur Random Creatinine 227.0 mg/dl U Random Total Protein 43.7 H (0-11.9) mg/dl Protein/Creatinin Ratio 0.2 (0-0.2) Urine Opiates Screen Neg (Neg) Ur Methadone, Qual Pos H (Neg) Urine Barbiturates Neg (Neg) Ur Phencyclidine (PCP) Neg (Neg) U Amphetamin/Meth Scrn Pos H (Neg) MDMA (Ecstasy) Screen Pos H (Neg) U Benzodiazepines Scrn Neg (Neg) Ur Cocaine Metabolite Neg (Neg) U Marijuana (THC) Screen Pos H (Neg) RPR (Nonreactive) Hep Bs Antigen (Neg) Hepatitis C Antibody (Neg) HIV 1&2 Ab/P24 Ag 4thGn (Neg) Rubella IgG Antibody (Immune) SARS-CoV-2, RNA, NAAT (NEGATIVE) Blood Type Antibody Screen Crossmatch 02/14/21 02/14/21 02/14/21 Range/Units 09:02 09:02 09:02 WBC (4.8-10.8) K/uL RBC (4.2-5.4) M/uL Hgb (12.0-16.0) g/dL Hct (37-47) % MCV (80-100) fL MCH (25-34) pg MCHC (32-36) g/dL RDW Std Deviation (36.4-46.3) fL RDW Coeff of Davida (11.5-14.5) % Plt Count (130-400) K/uL MPV (7.4-10.4) fL Immature Gran % (Auto) % Neut % (Auto) % Lymph % (Auto) % Craig % (Auto) % Eos % (Auto) % Baso % (Auto) % Neut # (Auto) (1.4-6.5) K/uL Lymph # (Auto) (1.2-3.4) K/uL Craig # (Auto) (0.11-0.59) K/uL Eos # (Auto) (0-0.5) K/uL Baso # (Auto) (0-0.2) K/uL Immature Gran # (Auto) (0.00-0.02) K/uL Polychromasia Hypochromasia Anisocytosis Microcytosis Ovalocytes Echinocytes PT 9.4 (9.0-12.0) Seconds INR 0.9 (0.9-1.1) APTT 20.5 L (21.0-31.0) Seconds PTT Ratio 0.8 Fibrinogen 335 (184-400) mg/dl Sodium 135 L (136-145) mmol/L Potassium 3.6 (3.5-5.1) mmol/L Chloride 107 (98-107) mmol/L Carbon Dioxide 20 L (21-32) mmol/L Anion Gap 8.0 (3-11) BUN 7 (7-18) mg/dl Creatinine 0.74 (0.6-1.2) mg/dl Est Cr Clr Drug Dosing 118.2 ml/min Est GFR ( Amer) 134.2 ml/min Est GFR (Non-Af Amer) 115.8 ml/min BUN/Creatinine Ratio 9.4 L (10-20) Glucose 132 H (70-99) mg/dl Uric Acid 4.1 (2.6-7.2) mg/dl Calcium 8.3 L (8.5-10.1) mg/dl Phosphorus (2.5-4.9) mg/dl Magnesium (1.8-2.4) mg/dl Total Bilirubin 0.3 (0.2-1) mg/dl AST 11 L (15-37) U/L ALT 10 L (12-78) Alkaline Phosphatase 184 H D (45-117) U/L Lactate Dehydrogenase 150 (84-246) U/L Total Protein 5.3 L (6.4-8.2) gm/dl Albumin 2.1 L (3.4-5.0) gm/dl Globulin 3.2 (2.5-4.0) gm/dl Albumin/Globulin Ratio 0.7 L (0.9-2) Ur Random Creatinine mg/dl U Random Total Protein (0-11.9) mg/dl Protein/Creatinin Ratio (0-0.2) Urine Opiates Screen (Neg) Ur Methadone, Qual (Neg) Urine Barbiturates (Neg) Ur Phencyclidine (PCP) (Neg) U Amphetamin/Meth Scrn (Neg) MDMA (Ecstasy) Screen (Neg) U Benzodiazepines Scrn (Neg) Ur Cocaine Metabolite (Neg) U Marijuana (THC) Screen (Neg) RPR (Nonreactive) Hep Bs Antigen (Neg) Hepatitis C Antibody (Neg) HIV 1&2 Ab/P24 Ag 4thGn (Neg) Rubella IgG Antibody (Immune) SARS-CoV-2, RNA, NAAT (NEGATIVE) Blood Type Antibody Screen Crossmatch 02/14/21 02/14/21 02/14/21 Range/Units 09:07 20:28 20:28 WBC 12.62 H 17.85 H (4.8-10.8) K/uL RBC 2.89 L 3.33 L (4.2-5.4) M/uL Hgb 6.3 L* 8.5 L (12.0-16.0) g/dL Hct 21.3 L 26.9 L (37-47) % MCV 73.7 L 80.8 D (80-100) fL MCH 21.8 L 25.5 (25-34) pg MCHC 29.6 L 31.6 L (32-36) g/dL RDW Std Deviation 44.1 60.3 H (36.4-46.3) fL RDW Coeff of Davida 16.3 H 20.3 H (11.5-14.5) % Plt Count 292 209 (130-400) K/uL MPV 10.5 H 10.7 H (7.4-10.4) fL Immature Gran % (Auto) 0.4 0.2 % Neut % (Auto) 84.9 76.0 % Lymph % (Auto) 11.6 14.9 % Craig % (Auto) 2.9 8.6 % Eos % (Auto) 0.1 0.2 % Baso % (Auto) 0.1 0.1 % Neut # (Auto) 10.71 H 13.57 H (1.4-6.5) K/uL Lymph # (Auto) 1.47 2.66 (1.2-3.4) K/uL Craig # (Auto) 0.37 1.53 H (0.11-0.59) K/uL Eos # (Auto) 0.01 0.04 (0-0.5) K/uL Baso # (Auto) 0.01 0.01 (0-0.2) K/uL Immature Gran # (Auto) 0.05 H 0.04 H (0.00-0.02) K/uL Polychromasia 1+ Hypochromasia Present Present Anisocytosis Present Microcytosis Present Ovalocytes 1+ Echinocytes 1+ PT (9.0-12.0) Seconds INR (0.9-1.1) APTT (21.0-31.0) Seconds PTT Ratio Fibrinogen (184-400) mg/dl Sodium 135 L (136-145) mmol/L Potassium 4.6 D (3.5-5.1) mmol/L Chloride 104 (98-107) mmol/L Carbon Dioxide 27 (21-32) mmol/L Anion Gap 4.0 (3-11) BUN 7 (7-18) mg/dl Creatinine 0.80 (0.6-1.2) mg/dl Est Cr Clr Drug Dosing 109.4 ml/min Est GFR ( Amer) 122.2 ml/min Est GFR (Non-Af Amer) 105.4 ml/min BUN/Creatinine Ratio 8.2 L (10-20) Glucose 108 H (70-99) mg/dl Uric Acid (2.6-7.2) mg/dl Calcium 7.0 L D (8.5-10.1) mg/dl Phosphorus (2.5-4.9) mg/dl Magnesium (1.8-2.4) mg/dl Total Bilirubin 0.2 (0.2-1) mg/dl AST 17 (15-37) U/L ALT 14 (12-78) Alkaline Phosphatase 174 H (45-117) U/L Lactate Dehydrogenase (84-246) U/L Total Protein 5.3 L (6.4-8.2) gm/dl Albumin 2.2 L (3.4-5.0) gm/dl Globulin 3.1 (2.5-4.0) gm/dl Albumin/Globulin Ratio 0.7 L (0.9-2) Ur Random Creatinine mg/dl U Random Total Protein (0-11.9) mg/dl Protein/Creatinin Ratio (0-0.2) Urine Opiates Screen (Neg) Ur Methadone, Qual (Neg) Urine Barbiturates (Neg) Ur Phencyclidine (PCP) (Neg) U Amphetamin/Meth Scrn (Neg) MDMA (Ecstasy) Screen (Neg) U Benzodiazepines Scrn (Neg) Ur Cocaine Metabolite (Neg) U Marijuana (THC) Screen (Neg) RPR (Nonreactive) Hep Bs Antigen (Neg) Hepatitis C Antibody (Neg) HIV 1&2 Ab/P24 Ag 4thGn (Neg) Rubella IgG Antibody (Immune) SARS-CoV-2, RNA, NAAT (NEGATIVE) Blood Type Antibody Screen Crossmatch 02/15/21 02/15/21 02/16/21 Range/Units 06:03 08:27 05:56 WBC 14.95 H (4.8-10.8) K/uL RBC 2.86 L (4.2-5.4) M/uL Hgb 7.3 L (12.0-16.0) g/dL Hct 22.8 L (37-47) % MCV 79.7 L (80-100) fL MCH 25.5 (25-34) pg MCHC 32.0 (32-36) g/dL RDW Std Deviation 58.3 H (36.4-46.3) fL RDW Coeff of Davida 20.0 H (11.5-14.5) % Plt Count 171 (130-400) K/uL MPV 10.6 H (7.4-10.4) fL Immature Gran % (Auto) % Neut % (Auto) % Lymph % (Auto) % Craig % (Auto) % Eos % (Auto) % Baso % (Auto) % Neut # (Auto) (1.4-6.5) K/uL Lymph # (Auto) (1.2-3.4) K/uL Craig # (Auto) (0.11-0.59) K/uL Eos # (Auto) (0-0.5) K/uL Baso # (Auto) (0-0.2) K/uL Immature Gran # (Auto) (0.00-0.02) K/uL Polychromasia Hypochromasia Anisocytosis Microcytosis Ovalocytes Echinocytes PT (9.0-12.0) Seconds INR (0.9-1.1) APTT (21.0-31.0) Seconds PTT Ratio Fibrinogen (184-400) mg/dl Sodium 135 L 139 (136-145) mmol/L Potassium 4.6 4.4 (3.5-5.1) mmol/L Chloride 106 110 H (98-107) mmol/L Carbon Dioxide 25 25 (21-32) mmol/L Anion Gap 4.0 4.0 (3-11) BUN 6 L 9 (7-18) mg/dl Creatinine 0.73 0.84 (0.6-1.2) mg/dl Est Cr Clr Drug Dosing 119.9 104.2 ml/min Est GFR ( Amer) 136.5 115.1 ml/min Est GFR (Non-Af Amer) 117.7 99.4 ml/min BUN/Creatinine Ratio 8.7 L 10.3 (10-20) Glucose 103 H 79 (70-99) mg/dl Uric Acid (2.6-7.2) mg/dl Calcium 6.9 L 7.8 L (8.5-10.1) mg/dl Phosphorus 3.8 4.6 (2.5-4.9) mg/dl Magnesium 6.1 H* 2.4 (1.8-2.4) mg/dl Total Bilirubin 0.2 0.2 (0.2-1) mg/dl AST 18 15 (15-37) U/L ALT 12 12 (12-78) Alkaline Phosphatase 155 H 139 H (45-117) U/L Lactate Dehydrogenase (84-246) U/L Total Protein 5.0 L 4.8 L (6.4-8.2) gm/dl Albumin 2.0 L 1.9 L (3.4-5.0) gm/dl Globulin 3.0 2.9 (2.5-4.0) gm/dl Albumin/Globulin Ratio 0.7 L 0.7 L (0.9-2) Ur Random Creatinine mg/dl U Random Total Protein (0-11.9) mg/dl Protein/Creatinin Ratio (0-0.2) Urine Opiates Screen (Neg) Ur Methadone, Qual (Neg) Urine Barbiturates (Neg) Ur Phencyclidine (PCP) (Neg) U Amphetamin/Meth Scrn (Neg) MDMA (Ecstasy) Screen (Neg) U Benzodiazepines Scrn (Neg) Ur Cocaine Metabolite (Neg) U Marijuana (THC) Screen (Neg) RPR (Nonreactive) Hep Bs Antigen (Neg) Hepatitis C Antibody (Neg) HIV 1&2 Ab/P24 Ag 4thGn (Neg) Rubella IgG Antibody (Immune) SARS-CoV-2, RNA, NAAT (NEGATIVE) Blood Type Antibody Screen Crossmatch 02/16/21 02/16/21 02/17/21 Range/Units 05:56 15:43 07:38 WBC 9.10 10.16 9.84 (4.8-10.8) K/uL RBC 2.46 L 3.09 L 3.40 L (4.2-5.4) M/uL Hgb 6.4 L* 8.2 L 9.0 L (12.0-16.0) g/dL Hct 20.3 L* 25.5 L 28.2 L (37-47) % MCV 82.5 82.5 82.9 (80-100) fL MCH 26.0 26.5 26.5 (25-34) pg MCHC 31.5 L 32.2 31.9 L (32-36) g/dL RDW Std Deviation 60.7 H 57.2 H 57.7 H (36.4-46.3) fL RDW Coeff of Davida 20.3 H 19.0 H 19.2 H (11.5-14.5) % Plt Count 188 193 231 (130-400) K/uL MPV 10.4 10.6 H 10.8 H (7.4-10.4) fL Immature Gran % (Auto) 0.4 0.3 % Neut % (Auto) 64.1 66.9 % Lymph % (Auto) 26.4 23.5 % Craig % (Auto) 7.5 5.9 % Eos % (Auto) 1.5 3.2 % Baso % (Auto) 0.1 0.2 % Neut # (Auto) 6.52 H 6.59 H (1.4-6.5) K/uL Lymph # (Auto) 2.68 2.31 (1.2-3.4) K/uL Craig # (Auto) 0.76 H 0.58 (0.11-0.59) K/uL Eos # (Auto) 0.15 0.31 (0-0.5) K/uL Baso # (Auto) 0.01 0.02 (0-0.2) K/uL Immature Gran # (Auto) 0.04 H 0.03 H (0.00-0.02) K/uL Polychromasia Hypochromasia Anisocytosis Microcytosis Ovalocytes Echinocytes PT (9.0-12.0) Seconds INR (0.9-1.1) APTT (21.0-31.0) Seconds PTT Ratio Fibrinogen (184-400) mg/dl Sodium (136-145) mmol/L Potassium (3.5-5.1) mmol/L Chloride (98-107) mmol/L Carbon Dioxide (21-32) mmol/L Anion Gap (3-11) BUN (7-18) mg/dl Creatinine (0.6-1.2) mg/dl Est Cr Clr Drug Dosing ml/min Est GFR ( Amer) ml/min Est GFR (Non-Af Amer) ml/min BUN/Creatinine Ratio (10-20) Glucose (70-99) mg/dl Uric Acid (2.6-7.2) mg/dl Calcium (8.5-10.1) mg/dl Phosphorus (2.5-4.9) mg/dl Magnesium (1.8-2.4) mg/dl Total Bilirubin (0.2-1) mg/dl AST (15-37) U/L ALT (12-78) Alkaline Phosphatase (45-117) U/L Lactate Dehydrogenase (84-246) U/L Total Protein (6.4-8.2) gm/dl Albumin (3.4-5.0) gm/dl Globulin (2.5-4.0) gm/dl Albumin/Globulin Ratio (0.9-2) Ur Random Creatinine mg/dl U Random Total Protein (0-11.9) mg/dl Protein/Creatinin Ratio (0-0.2) Urine Opiates Screen (Neg) Ur Methadone, Qual (Neg) Urine Barbiturates (Neg) Ur Phencyclidine (PCP) (Neg) U Amphetamin/Meth Scrn (Neg) MDMA (Ecstasy) Screen (Neg) U Benzodiazepines Scrn (Neg) Ur Cocaine Metabolite (Neg) U Marijuana (THC) Screen (Neg) RPR (Nonreactive) Hep Bs Antigen (Neg) Hepatitis C Antibody (Neg) HIV 1&2 Ab/P24 Ag 4thGn (Neg) Rubella IgG Antibody (Immune) SARS-CoV-2, RNA, NAAT (NEGATIVE) Blood Type Antibody Screen Crossmatch PE: General: Alert, orientedx3, NAD Abd: soft, NT, fundus firm, below Umbilicus Perineum intact, Lochia rubra minimal Ext; NT, no edema AP: 20 yo s/p , ppd# 3, seizure like activity, s/p 24 hours of Magnesium VSS Afebrile doing well Continue routine care All questions were answered Discussed when to call Discussed contraception and desires BCP D/C home , F/U IN OFFICE Results & Data ([facility]) Vital Signs (Past 12 Hours) Vital Signs Temp Pulse Resp BP Pulse Ox 02/17/21 07:40 36.7 C 73 16 138/86 97 02/16/21 23:40 36.6 C 65 16 132/86 97 02/16/21 21:25 65 118/73
--- NOTE | 2021-02-17 16:39 | Hospitalist Progress Note ---
Date of Service February 16, 2021 Assessment & Plan (1) Seizure-like activity: Plan: Does not appear secondary to withdrawal at this time. Neurology consulted for evaluation for potential seizure disorder although may have simply been secondary to eclampsia in the setting of elevated BP and proteinuria. Per neuro: initially thought could be García-Tirado attack or brief seizure activity associated with hypotension vs. vasovagal episode vs. secondary to eclampsia Further work -up as below EEG obtained - negative Brain MRI - No acute intracranial abnormality. MR venography head wo con - No evidence for dural venous sinus thrombosis. No recurrent activity since delivery. Per neurology this appears to been a vagal mediated syncopal event with some convulsive movements and rapid clearing of her mental status back to normal - not suggestive of seizure at this point (2) Opioid dependence: Plan: - Continue methadone as taking outpatient (3) : Plan: s/p spontaneous vaginal delivery today - care per primary service (4) Anxiety: (5) Depression: Admission and Anticipated Discharge Date Admission Date: February 14, 2021 Subjective Pt seen in follow up of poss. seizure post vag. delivery Currently sitting up in bed in [facility], however receiving blood transfusion this AM Denies any fever, chills, chest pain, shortness of breath, abd. pain, n/v No more episodes off seizure like activity Review of Systems Review of Systems: All systems reviewed & are unremarkable except as noted in Subjective Physical Exam Physical Exam: Constitutional:L young F in no acut e distress Eyes: PERRL, EOMI, conju nctivae normal, an icteric sclerae ENMT: external ear and n ose normal, oropha rynx normal Neck: supple Respiratory: no respiratory dis tress and no labor ed breathing, lung s clear to auscult ation bilaterally; no rales, no rhon chi and no wheezes Cardiovascular:L regular rate and r egular rhythm, no murmur, dorsalis p adilson pulses presen t and radial pulse s present Gastrointestinal ( Abdomen): normal bowel sound s; abdomen not dis tended Percussion /Palpation: abdome n soft Musculoskeletal: normocephalic, atr aumatic and neck s upple Skin: + pallor; no rodrick dice Neurologic: moves all extremit ies; no focal jena r deficits and not confused Motor/S ensory: no tremor and no fasciculati ons Cranial Nerve s: PERRL,EOM intac t bilaterally, nor mal facial strengt h, tongue midline, able to rotate he ad bilaterally, ab le to elevate shou lders bilaterally and symmetric todd te elevation Psychiatric: A+Ox3, euthymic af fect
[2021-02-18 10:02] LABS: Amphetamine Urine, Confirm 376 ng/mL (<250); MDA negative; MDEA negative; MDMA (Ecstasy) Urine, Confirm negative; Marijuana Quant, GCMS Urine 402 ng/mL (<5); Methadone, Ur Metabolite >10000 ng/mL (<100); Methamphetamine, Ur Confirm 2630 ng/mL (<250)
--- NOTE | 2021-02-28 09:13 | Discharge Summary (DS) ---
DATE OF ADMISSION: 02/14/2021 DATE OF DISCHARGE: 02/17/2021. DETAILS OF ADMISSION: The patient is a 20-year-old G2, P1-0-0-1, female with insufficent care and uncertain dates. She presented to labor and delivery on the morning of 02/14/2021 in active labor. Per her, EDC was calculated to be 02/24/2021 when she saw an ob clinic one time only during early . Her was complicated by history of opioid dependence and she was on methadone 55 mg daily. She also had a history of anxiety and panic disorder, but she has not being treated. Her hemoglobin was 8 on admission and I ordered typed and crossed 2 units of packed red blood cells just in case she will need it. Soon after admission, the patient received epidural for pain and then when I came in, she progressed to full dilatation quickly and desires to push. She pushed through two- three contractions and delivered the baby without difficulty. Baby was vigorously moving and crying and Apgars were 8/9. She only had first-degree small laceration in the labia and I repaired that with a 3-0 Vicryl on SH needle. Excellent hemostasis was achieved. Right after that she started to have an episode of seizure-like activity with brief change in consciousness and contracture of extremities with strong extension, and then she quickly gained her consciousness in a minute or two and responded to questions. She appeared to be tired as postictal. Then all the nursing team was called to the room, second IV was started and nasall oxygen was started. 6 gr od magnesium IV bolus was started assuming that it could be eclamptic seizure. Her vital signs were stable and her blood pressure was normal and pulse were within her limits. Her EBL was 200 ml and lochia was minimal. Her fundus was firm and bleeding was minimal. She was given Cytotec rectally to prevent further bleeding. Upon going back to her records; however, some of her blood pressures were elevated on admission. she then had stat labs of CMP,CBC and coagulation labs. Her hemoglobin came back 6.7. She was given 2 units of packed red blood cells and continued with IV magnesium for seizure prophylaxis for 24 hours. Meanwhile, her urine drug screening results came back positive for methadone, ecstasy and marijuana and baby was stable in the nursery. Then hospitalist and Neurology were consulted. Hospitalist came to see her and they did not think it could be from withdrawal and recommended a Neurology evaluation for seizure disorders and Neurology came and saw her. They ordered an MRI of brain and EEG, they were normal and they did not think there is an ongoing seizure disorder and this could be most likely from vasovagal response to delivery or eclamptic seizures. Patient was stable and started on PO Labetalol. Then magnesium was discontinued after 24 hours. She was doing well. Vital signs were stable, afebrile. The repeat H and H after 2 units of blood was 26.9/8.5 and her liver enzymes were normal. Creatinine was normal and her PT/INR coags were normal. Urine random protein was elevated, but creatinine ratio was normal. She had another CBC on day #1. Her H and H was low again at 7.3/22.8 and then repeat was a 6.4/20.3. She then received 2 more units of packed red blood cells on 02/16/2021. Her H and H increased to 8.2/25.5 and on next day, and on 02/17/2021 it increased to 9/28.2. On day #2, the patient was doing well, vital signs stable, afebrile, voiding without difficulty, tolerating regular diet, without problems. She wanted to be discharged. She was discharged on day #2. Discharge instructions were given. Prescriptions were written for pain and Labetalol. She is to be seen in the office in a week. Since her baby was in the hospital, she was placed in the room as a nursing mom at the hospital. Job ID: [id number] [facility]
== END 2021-02-17 12:45 | disposition home or self-care (01) | DRG 805 ==
LOC: OPB 04:13 → 4S1 04:18 → 4S2 02-15 11:30